=== PATIENT | male | born 1940 | race Caucasian/White ===

== ENCOUNTER 2017-12-30 15:41 | Inpatient (IN) ==
[2017-12-30] MEDS ORDERED: Sod Chloride 0.9% Inj 1,000 ML IV.CONT SCH (16:00)
--- NOTE | 2017-12-30 16:24 | XR ---
EXAM DATE: 12/30/2017 4:12 PM EDT AGE/SEX: 77 years / Male INDICATIONS: Palpitations CLINICAL DATA: This is the patient's initial encounter. Patient reports that signs and symptoms have been present for 1 day and indicates a pain score of 0/10. MEDICAL/SURGICAL HISTORY: None. None. COMPARISON: TLI, XR CHEST PA AND LAT, 01/28/2016. . FINDINGS: The cardiac silhouette is enlarged in transverse diameter. There are findings of congestive heart anthony lure with interstitial and alveolar opacity bilaterally. The lungs are hypoinflated. No pleural eff usions are identified. CONCLUSION: Cardiomegaly and findings of congestive heart failure. Electronically signed by: Gagan Crabtree MD 12/30/2017 4:23 PM EDT
[2017-12-30 16:29] LABS: Baso % (Auto) 0.5 % (0.0-2.0); Eos # (Auto) 0.1 th/mm3 (0.0-0.4); Eos % (Auto) 1.3 % (0.0-4.0); Hematocrit 46.3 % (39.0-51.0); Hemoglobin 16.1 gm/dL (13.0-17.0); Lymph # (Auto) 2.3 th/mm3 (1.0-4.8); Lymph % (Auto) 29.4 % (9.0-44.0); Mean Corpuscular HGB Conc 34.7 % (32.0-36.0); Mean Corpuscular Hemoglobin 30.6 pg (27.0-34.0); Mean Platelet Volume 8.5 fL (7.0-11.0); Mono # (Auto) 0.8 th/mm3 (0.0-0.9); Mono % (Auto) 9.7 % (0.0-8.0); Neut # (Auto) 4.6 th/mm3 (1.8-7.7); Neut % (Auto) 59.1 % (16.0-70.0); Platelet Count 226 th/mm3 (150-450); Red Blood Count 5.26 mil/mm3 (4.50-5.90); White Blood Count 7.7 th/mm3 (4.0-11.0)
--- NOTE | 2017-12-30 16:37 | CT ---
EXAM DATE: 12/30/2017 4:30 PM EDT AGE/SEX: 77 years / Male INDICATIONS: History of a stroke seen on MRI one week ago now having a severe headache weakness left arm CLINICAL DATA: This is the patient's initial encounter. Patient reports that signs and symptoms have been present for 1 day and indicates a pain score of 6/10. MEDICAL/SURGICAL HISTORY: Cerebrovascular disease. Hypertension. None. RADIATION DOSE: 36.71 CTDI (mGy) COMPARISON: POI, MR BRAIN W AND W/O CONTRAST, 12/22/2017. . TECHNIQUE: CT of the head without contrast. Using automated exposure control and adjustment of the mA and/or kV according to patient size, radiation dose was kept as low as reasonably achievable to ob tain optimal diagnostic quality images. DICOM format image data is available electronically for revi ew and comparison. FINDINGS: Cerebrum: The ventricles are normal for age. No evidence of midline shift, mass lesion, hemorrhage or acute infarction. No extraaxial fluid collections are seen. Posterior Fossa: The cerebellum and brainstem are intact. The 4th ventricle is midline. The cerebe llopontine angle is unremarkable. Extracranial: The visualized portion of the orbits is intact. Skull: The calvaria is intact. No evidence of skull fracture. The small embolic infarcts seen on the prior MRI are not visualized on this examination. CONCLUSION: 1. Unremarkable CT scan of the brain. . Electronically signed by: Geo Miller MD 12/30/2017 4:36 PM EDT
[2017-12-30 16:38] LABS: INR 1.1 Ratio; Prothrombin Time 10.9 sec (9.8-11.6)
[2017-12-30 16:58] LABS: Anion Gap 11 meq/L (5-15); Blood Urea Nitrogen 19 mg/dL (7-18); Calcium 8.3 mg/dL (8.5-10.1); Carbon Dioxide 21.2 meq/L (21.0-32.0); Chloride 110 meq/L (98-107); Glomerular Filtration Rate 46 mL/min (>89); Glucose,Random 106 mg/dL (74-106); Potassium 3.8 meq/L (3.5-5.1); Sodium 142 meq/L (136-145)
[2017-12-30 17:03] LABS: Creatine Kinase 101 U/L (39-308); Troponin I 0.03 ng/mL (0.02-0.05)
[2017-12-30] MEDS ORDERED: Aspirin 325 MG Tablet PO ONE (17:54)
--- NOTE | 2017-12-30 18:07 | ED ---
HPI General Chief Complaint: Neuro Symptoms/Deficit Stated Complaint: Evac/Ams Time Seen by Provider: 12/30/17 15:58 Source: patient, family and EMS Mode of arrival: EMS Limitations: altered mental status History of Present Illness HPI Narrative: 77-year-old male the presents to the ED for evaluation of possible CVA. Per report from the family who is at bedside as well as from the EVAC and the patient patient apparently had about a week ago an episode where he had weakness to the left hand. Basically he cannot grasp his wallet. This lasted about 1020 minutes and it went away. Patient at the time been no wanting to go to the ER and did not seek any treatment. He did follow with his doctor who ordered MRI as well as MRI of the brain and per family the MRI was done last week and does have the MRA done yesterday. His been doing fine per family and no acute distress and apparently the partner stated that he went to lunch with him today and apparently the patient drove back home with groceries and when he got home he apparently could not remember anything that had happened. Patient is unable to answer any questions on regards to what has happened for the past week and he cannot recall having an MRA or MRI recently. He does state that he has a history of atrial fibrillation and takes Eliquis. Patient himself is unable to answer some questions including who his doctor is or what day of the week it is. He cannot really tell me who the president is states is. He does appear to be altered and somewhat disoriented. He denies any numbness, tendon, weakness. He denies any chest pain or shortness of breath. He denies any trauma. Per family last time he was seen normal was around 1:00 this afternoon. Related Data Allergies Allergy/AdvReac Type Severity Reaction Status Date / Time zolpidem AdvReac Severe Psychosis Verified 12/30/17 15:50 Review of Systems ROS: all other systems reviewed are negative [facility] Medical History Medical History Hypertension (Acute) Social History Social History Substance History: No History of Abuse Second Hand Smoke Exposure: No Smoking Status: Former smoker Tobacco Type: Cigarettes How Often Do You Have a Drink Containing Alcohol: Monthly or less Recent Travel in [facility] within the Last 8 Weeks: No Recent Out of Country Travel within the Last 8 Weeks: No Immunization History Tetanus Immunization: Unsure Hx Influenza Vaccine This Season: Yes Exam Narrative Exam Narrative: GENERAL: Well-appearing SKIN: Focused skin assessment warm/dry. HEAD: Atraumatic. Normocephalic. EYES: Pupils equal and round 4 mms reactive to light and accommodation.. No scleral icterus. No injection or drainage. ENT: No nasal bleeding or discharge. Mucous membranes pink and moist. Tongue is midline. No uvula deviation. NECK: Trachea midline. No JVD. CARDIOVASCULAR: Regular rate and rhythm. No murmur appreciated. RESPIRATORY: No accessory muscle use. Clear to auscultation. Breath sounds equal bilaterally. GASTROINTESTINAL: Abdomen soft, non-tender, nondistended. Hepatic and splenic margins not palpable. MUSCULOSKELETAL: No obvious deformities. No clubbing. No cyanosis. No edema. Full range of motion of the upper and lower extremities bilaterally. 2+ pulses bilaterally. No drift or strength weakness noted on the lower or upper extremities bilaterally. Finger to nose test negative. Heel to leg test negative. Romberg test negative. Pronator test negative. NEUROLOGICAL: Awake and alert but unable to answer time questions. No obvious cranial nerve deficits. Motor grossly within normal limits. Normal speech. PSYCHIATRIC: Appropriate mood and affect; insight and judgment normal. Course Initial Documented Vital Signs Temperature 98.4 F 12/30/17 15:51 Pulse Rate 64 12/30/17 15:51 Respiratory Rate 17 12/30/17 15:51 Blood Pressure 167/84 H 12/30/17 15:51 Pulse Oximetry 100 12/30/17 15:51 Last Documented Vital Signs Temperature 98.4 F 12/30/17 15:51 Pulse Rate 64 12/30/17 15:51 Respiratory Rate 17 12/30/17 15:51 Blood Pressure 167/84 H 12/30/17 15:51 Pulse Oximetry 97 12/30/17 16:02 NIH Stroke Scale NIH Stroke Scale Level of Consciousness: 0-Alert Orientation Questions: 2-Neither task correct Responds to Commands: 0-Both tasks correct Gaze Eye Movement: 0-Horizontal movement WNL Visual So: 1-Partial hemianopia Facial Movement: 0-Normal Motor Functions Arm LEFT: 0-No drift Motor Functions Arm RIGHT: 0-No drift Motor Functions Leg LEFT: 0-No drift Motor Functions Leg RIGHT: 0-No drift Limb Ataxia: 0-No ataxia Sensory Loss: 0-No sensory loss Best Language: 0-Normal Articulation: 0-Normal Extinction or Inattention Sensory: 0-Absent Total: 3 Medical Decision Making MDM Narrative Medical decision making narrative: 77-year-old male the presents to the ED for evaluation of possible stroke and altered mental status. Patient was properly examined by me. Case was immediately discussed with my attending. Patient has no neurological deficits and NIH score is 3 and mainly appears to be altered. He does take Eliquis. Unfortunately he will not be a candidate for TPA. He did had an MRI recently which was reviewed by me did show what appears to be acute embolic infarcts and this was done on December 22. Patient had MRIs done as well which were done yesterday and did show some artherosclerotic disease but minimal per the MRAs. I was able to print a copy of this results and put him on the patient's chart. My attending recommends CVA workup but no stroke alert. Dr. Sanders evaluated the patient himself and agrees with this plan as patient unfortunately would not be a candidate for TPA. Initial CT did not show any sign of acute disease or bleeding. Case was discussed immediately with my attending again who recommends a speak with neurology to see what the recommend. Spoke with Dr. Lanza who recommends repeat the MRI, aspirin and assess whether the patient has been compliant with the Eliquis as if he has not the patient might have to be anticoagulated with a different medication. All of those results worse discussed with the patient and family. They agree with plan. Case discussed with my attending Dr. Sanders who agrees with admission to the medical service. Case discussed with Dr. Santo who agrees with admission to his service. Medical Screen Exam Complete: Yes Emergency Medical Condition: Yes Differential Diagnosis Differential Diagnosis: CVA versus brain bleed versus ACS versus UTI versus altered mental status Medical Records Medical records reviewed: Yes I reviewed the patient's medical records. Lab Data Lab results reviewed: Yes I reviewed the patient's lab results. Lab results narrative: troponin and CKMB negative Result diagrams: 12/30/17 16:00 12/30/17 16:00 Lab Results 12/30/17 12/30/17 12/30/17 Range/Units 16:00 16:00 16:00 WBC 7.7 (4.0-11.0) th/mm3 RBC 5.26 (4.50-5.90) mil/mm3 Hgb 16.1 (13.0-17.0) gm/dL Hct 46.3 (39.0-51.0) % MCV 88.0 (80.0-100.0) fL MCH 30.6 (27.0-34.0) pg MCHC 34.7 (32.0-36.0) % RDW 15.0 (11.6-17.2) % Plt Count 226 (150-450) th/mm3 MPV 8.5 (7.0-11.0) fL Neut % (Auto) 59.1 (16.0-70.0) % Lymph % (Auto) 29.4 (9.0-44.0) % [place] % (Auto) 9.7 H (0.0-8.0) % Eos % (Auto) 1.3 (0.0-4.0) % Baso % (Auto) 0.5 (0.0-2.0) % Neut # (Auto) 4.6 (1.8-7.7) th/mm3 Lymph # (Auto) 2.3 (1.0-4.8) th/mm3 [place] # (Auto) 0.8 (0.0-0.9) th/mm3 Eos # (Auto) 0.1 (0.0-0.4) th/mm3 Baso # (Auto) 0.0 (0.0-0.2) th/mm3 WBC Differential . Differential Comment Auto diff final PT 10.9 (9.8-11.6) sec INR 1.1 Ratio APTT 28.0 (24.3-30.1) sec Sodium 142 (136-145) meq/L Potassium 3.8 (3.5-5.1) meq/L Chloride 110 H (98-107) meq/L Carbon Dioxide 21.2 (21.0-32.0) meq/L Anion Gap 11 (5-15) meq/L BUN 19 H (7-18) mg/dL Creatinine 1.48 H (0.60-1.30) mg/dL Estimated GFR 46 L (>89) mL/min Random Glucose 106 (74-106) mg/dL Calcium 8.3 L (8.5-10.1) mg/dL Total Creatine Kinase 101 (39-308) U/L CK-MB (CK-2) 2.0 (0.5-3.6) ng/mL Troponin I 0.03 (0.02-0.05) ng/mL Imaging Data Attestation: I personally reviewed and interpreted this imaging study as follows : Radiologist's impression: Chest X-Ray 12/30/17 15:58 CONCLUSION: Cardiomegaly and findings of congestive heart failure. Head CT 12/30/17 15:58 CONCLUSION: 1. Unremarkable CT scan of the brain. . ECG Data Attestation: I personally reviewed and interpreted this ECG as follows: Interpretation: EKG shows sinus rhythm with no sign of acute ischemia. No sign of ST elevation. IA intervals 174 milliseconds, ventricular rate of 67. Read by me and attending. Discharge Plan Discharge Disposition Patient Disposition: 30 Still Patient Discharge Details Diagnosis: Acute CVA (cerebrovascular accident), Altered mental status Physicians Team ED Provider: Rolly Sanders ED Midlevel Provider: Singh Garcia Primary Care Provider: Chen Hendricks Attending Provider: Martin Santo Other Providers: Gama Acuna Status ED Status: Admitted Patient
[2017-12-30 18:46] LABS: Bilirubin,Urine Negative (Negative); Clarity,Urine Clear (Clear); Color,Urine Yellow (Yellw/Straw); Glucose,Urine (UA) Negative (Negative); Hyaline Casts,Urine 5 /lpf (0-3); Leukocyte Esterase,Urine Negative (Negative); Mucus,Urine Few /lpf (Occasional); Nitrite,Urine Negative (Negative); Squamous Epithelial Cell,Urine <1 /hpf (0-5)
[2017-12-30] MEDS ORDERED: Dextrose 50% in Water 50 ML Vial IV.PUSH PRN (19:26)
[2017-12-30] MEDS ORDERED: Heparin - SQ 10,000 UNITS/ML Vial SQ SCH (21:00)
--- NOTE | 2017-12-30 21:04 | US ---
EXAM DATE: 12/30/2017 8:50 PM EDT AGE/SEX: 77 years / Male INDICATIONS: Confusion. CLINICAL DATA: This is the patient's initial encounter. Patient reports that signs and symptoms have been present for 1 day and indicates a pain score of 0/10. MEDICAL/SURGICAL HISTORY: Hypertension. None. COMPARISON: No prior exams available for comparison. VELOCITY PARAMETERS: ICA/CCA Ratio: Right 0.9 , Left 0.8 ICA: Right 57.4 cm/sec, Left 61.3 cm/sec CCA: Right 66.8 cm/sec, Left 79.3 cm/sec ECA: Right 79.9 cm/sec, Left 44.5 cm/sec Vertebral: Right 22.1 cm/sec antegrade, Left 60.4 cm/sec antegrade FINDINGS: Right Carotid: There is mild plaque at the right carotid bulb region without significant stenosis. T he waveforms are within normal limits. Left Carotid: No significant plaque is visualized. The waveforms are within normal limits. Other: None. CONCLUSION: Mild plaque at the right carotid bulb region. A significant stenosis is not seen on eithe r side. Electronically signed by: Shlomo Mcdonald MD 12/30/2017 9:03 PM EDT
--- NOTE | 2017-12-30 21:21 | P.HPIM ---
History of Present Illness Primary Care Physician: Chen Hendricks DO History of Present Illness: 77 y/o male with a history of HTN, and afib presented to the ED with confusion and left hand weakness. Patient only remembers some of the events today but states he was at grocery store and he became disoriented but able to drive home. When he got home he called for help. He does remember 2 days ago he had left hand weakness that has somewhat resolved. Patient denies any chest pain, sob, fever, chills, headaches or dizziness. He is currently on Eliquis at home and states he has been compliant with it. Inpatient Certification: I certify that the inpatient services were ordered in accordance with Medicare regulations governing the order. This includes certification that hospital inpatient services are reasonable and necessary and in the case of services not specified as inpatient-only under 42 CFR 419.22(n), that they are appropriately provided as inpatient services in accordance to with the 2-midnight benchmark under 43 CFR 412.3(e) Estimated Total Length of Stay (Days): 3 Plans for Post Hospital Care: Not yet determined Review of Systems All other systems reviewed negative except as stated in HPI PMFSH - History History Provided By: Family Member, Project Manager Industrial / EMT - Medical History Medical History: Medical History (Last Reviewed 12/30/17 @ 18:02 by JONATHAN Cevallos) Hypertension - Surgical History Surgical History: Surgical History (Last Updated 12/30/17 @ 21:08 by BRAN Chauhan) History of hip surgery History of knee surgery - Family History Family History: Family History (Last Updated 12/30/17 @ 21:09 by BRAN Chauhan) Mother CVA (cerebral vascular accident) Father CVA (cerebral vascular accident) - Tobacco History Second Hand Smoke Exposure: No Smoking Status: Former smoker Tobacco Type: Cigarettes - Alcohol History How Often Do You Have a Drink Containing Alcohol: Monthly or less - Substance Use History Substance History: No History of Abuse - Travel History Recent Travel in the [place] Within the Last 8 Weeks: No Recent Travel Out of the Country Within the Last 8 Weeks: No - Immunization History Tetanus Immunization: Unsure Hx Influenza Vaccine This Season: Yes Medications and Allergies Active Medications: Active Medications Aspirin (Aspirin Chew) 81 mg PO DAILY JAIME Dextrose (D50w Vial) 50 ml IV.PUSH UNSCH PRN PRN Reason: PER HYPOGLYCEMIA PROTOCOL Glucagon (Glucagon Inj) 1 mg OTHER UNSCH PRN PRN Reason: for Hypoglycemia Protocol Heparin Sodium (Porcine) (Heparin Inj) 5,000 units SQ Q12H JAIME Sodium Chloride (Ns Inj) 1,000 mls @ 70 mls/hr IV.CONT .[id number] JAIME Stop: 12/31/17 06:17 Last Admin: 12/30/17 16:11 Dose: 70 mls/hr Insulin Aspart (Novolog Insulin Correctional Sugar Inj) 0 unit SQ ACHS JAIME; Protocol Sodium Chloride (Ns Flush) 2 ml IV.FLUSH BID JAIME Sodium Chloride (Ns Flush) 2 ml IV.FLUSH PRN PRN PRN Reason: FLUSH AFTER USING IV ACCESS Allergies Allergy/AdvReac Type Severity Reaction Status Date / Time zolpidem AdvReac Severe Psychosis Verified 12/30/17 15:50 Home Medications Medication Instructions Recorded Confirmed Type Unable to Obtain Home Meds 12/30/17 12/30/17 History Exam Vital signs: Vital Signs 12/30/17 15:51 12/30/17 16:02 12/30/17 18:07 Temperature 98.4 F Pulse Rate 64 65 Respiratory Rate 17 19 Blood Pressure 167/84 H 183/94 H Pulse Oximetry 100 97 100 12/30/17 18:12 Temperature Pulse Rate Respiratory Rate Blood Pressure Pulse Oximetry 98 Intake & Output 12/30/17 12/30/17 12/31/17 06:59 18:59 06:59 Weight 79.4 kg Narrative: GENERAL: This is a well-nourished, well-developed patient, in no apparent distress. CARDIOVASCULAR: Regular rate and rhythm without murmurs, gallops, or rubs. RESPIRATORY: Clear to auscultation. Breath sounds equal bilaterally. No wheezes , rales, or rhonchi. GASTROINTESTINAL: Abdomen soft, non-tender, nondistended. Normal active bowel sounds MUSCULOSKELETAL: Extremities without clubbing, cyanosis, or edema. NEURO: Alert & partially Oriented x2-3 to person, place, and situation. Moves all ext x4, left hand slightly weaker. Results - Labs CBC & Chem 7: 12/30/17 16:00 12/30/17 16:00 Labs: Short CBC 12/30/17 Range/Units 16:00 WBC 7.7 (4.0-11.0) th/mm3 Hgb 16.1 (13.0-17.0) gm/dL Hct 46.3 (39.0-51.0) % Plt Count 226 (150-450) th/mm3 BMP 12/30/17 16:00 Sodium 142 Potassium 3.8 Chloride 110 H Carbon Dioxide 21.2 BUN 19 H Creatinine 1.48 H Calcium 8.3 L Cardiac Enzymes 12/30/17 Range/Units 16:00 Total Creatine Kinase 101 (39-308) U/L CK-MB (CK-2) 2.0 (0.5-3.6) ng/mL Troponin I 0.03 (0.02-0.05) ng/mL Urine 12/30/17 Range/Units 18:05 Urine Color Yellow (Yellw/Straw) Urine Clarity Clear (Clear) Urine pH 5.0 (5.0-8.5) Ur Specific [place] 1.020 (1.002-1.035) Urine Protein Negative (Neg-Trace) mg/dL Urine Glucose (UA) Negative (Negative) mg/dL - Imaging Impressions Chest X-Ray 12/30/17 15:58 CONCLUSION: Cardiomegaly and findings of congestive heart failure. Head CT 12/30/17 15:58 CONCLUSION: 1. Unremarkable CT scan of the brain. . Caprini VTE Risk Assessment Caprini VTE Risk Assessment: Moderate/High Risk (score >= 2) Caprini Risk Assessment Model: Point Value = 1 Point Value = 2 Point Value = 3 Point Value = 5 Age 41-60 Minor surgery BMI > 25 kg/m2 Swollen legs Varicose veins or History of unexplained or recurrent spontaneous Oral contraceptives or hormone replacement Sepsis (< 1 month) Serious lung disease, including pneumonia (< 1 month) Abnormal pulmonary function Acute myocardial infarction Congestive heart failure (< 1 month) History of inflammatory bowel disease Medical patient at bed rest Age 61-74 Arthroscopic surgery Major open surgery (> 45 min) Laparoscopic surgery (> 45 min) Malignancy Confined to bed (> 72 hours) Immobilizing plaster cast Central venous access Age >= 75 History of VTE Family history of VTE Factor V Leiden Prothrombin [id number] Lupus anticoagulant Anticardiolipin antibodies Elevated serum homocysteine Heparin-induced thrombocytopenia Other congenital or acquired thrombophilia Stroke (< 1 month) Elective arthroplasty Hip, pelvis, or leg fracture Acute spinal cord injury (< 1 month) Prophylaxis Regimen: Total Risk Factor Score Risk Level Prophylaxis Regimen 0-1 Low Early ambulation 2 Moderate Order ONE of the following: *Sequential Compression Device (SCD) *Heparin 5000 units SQ BID 3-4 Higher Order ONE of the following medications: *Heparin 5000 units SQ TID *Enoxaparin/Lovenox 40 mg SQ daily (WT < 150 kg, CrCl > 30 mL/min) *Enoxaparin/Lovenox 30 mg SQ daily (WT < 150 kg, CrCl > 10-29 mL/min) *Enoxaparin/Lovenox 30 mg SQ BID (WT < 150 kg, CrCl > 30 mL/min) AND/OR *Sequential Compression Device (SCD) 5 or more Highest Order ONE of the following medications: *Heparin 5000 units SQ TID (Preferred with Epidurals) *Enoxaparin/Lovenox 40 mg SQ daily (WT < 150 kg, CrCl > 30 mL/min) *Enoxaparin/Lovenox 30 mg SQ daily (WT < 150 kg, CrCl > 10-29 mL/min) *Enoxaparin/Lovenox 30 mg SQ BID (WT < 150 kg, CrCl > 30 mL/min) AND *Sequential Compression Device (SCD) Assessment and Plan - Plan CVA Outpatient MRI reviewed and shows acute embolic infarcts Head CT reviewed and unremarkable -Consult neurology for evaluation -Repeat MRI recommended my neuro, reviewed and shows Multiple small focal areas of acute infarction in the right frontal and parietal lobes, right caudate, right posterior lateral corpus callosum, and right cerebellar hemispheres and all were present prior, there is also a new linear signal seen in the posterior right parietal lobe thought to be cortical sulci consistent with subarachnoid hemorrhage. -Consult neurosurgery for evaluation as well -Neuro checks -2d echo and carotid US ordered -Pt/OT/ST -lipid profile/a1c ordered -ASA daily FREDA, creatine 1.4,Unknown baseline -IVF -Trend creatine -avoid nephrotoxins HTN, chronic -Keep BP between 140s-160s -Clonidine PRN -Monitor vitals Afib, chronic -patient is on eliquis and states compliant, will need a new anticoagulation regimen on cleared by neurosurgery -monitor telemetry/Holter monitor DVT prophylaxis: SCDs, hold chemical due to hemorrhage Discussed Condition With: patient and RN
[2017-12-30] MEDS ORDERED: Gadobutrol PF 7.5 MMOL/7.5 ML Vial (for RAD) IV.SIG ONE (21:24)
--- NOTE | 2017-12-30 21:29 | MR ---
EXAM DATE: 12/30/2017 9:17 PM EDT AGE/SEX: 77 years / Male INDICATIONS: CVA. Memory loss. CLINICAL DATA: This is the patient's subsequent encounter. Patient reports that signs and symptoms h ave been present for 1 day and indicates a pain score of 0/10. MEDICAL/SURGICAL HISTORY: Cerebrovascular disease. . Hip and knee replacement. COMPARISON: POI, MR BRAIN W AND W/O CONTRAST, 12/22/2017. . TECHNIQUE: Multiplanar, multisequence examination of the brain was performed without and with 7.5 ml Gadavist (gadobutrol) contrast as a single exam dose. FINDINGS: Cerebrum: The ventricles are normal for age. There continue to be small focal areas of abnormal sig nal seen on the FLAIR and diffusion-weighted images in the right cerebral hemisphere in the right fro ntal lobe, right parietal lobe, right caudate, right posterior lateral corpus callosum, and in the me dial right cerebellar hemisphere. There is some increased signal seen in the posterior right parietal lobe which appears to be the sulci suggesting the presence of mild subarachnoid hemorrhage. This rosita ears new. The pituitary gland and suprasellar cistern are normal in configuration. White Matter: There are a few scattered areas of increased signal within the cerebral white matter. Posterior Fossa: The cerebellum and brainstem are intact. The 4th ventricle is midline. The cerebel lopontine angle is unremarkable. The cerebellar tonsils are normal in position. Diffusion Imaging: There continue to be small focal areas of abnormal signal seen on the FLAIR and d iffusion-weighted images in the right cerebral hemisphere in the right frontal lobe, right parietal l obe, right caudate, right posterior lateral corpus callosum, and in the medial right cerebellar hemis phere. Extracranial: The visualized portions of the orbits and paranasal sinuses are unremarkable. Post Contrast: No abnormal areas of parenchymal or dural enhancement. No evidence of blood-brain ba rrier breakdown. CONCLUSION: 1. Multiple small focal areas of acute infarction in the right frontal and parietal lobes, right cau date, right posterior lateral corpus callosum, and right cerebellar hemispheres. These were all prese nt previously. 2. New linear signal seen in the posterior right parietal lobe thought to be cortical sulci consiste nt with subarachnoid hemorrhage. This appears new. 3. Scattered areas of suspected small vessel ischemic change in the white matter. Electronically signed by: Shlomo Mcdonald MD 12/30/2017 9:28 PM EDT
[2017-12-30] MEDS: Insulin NovoLOG Aspart Correctional Sugar Inj SQ SCH (22:00)
[2017-12-31] MEDS ORDERED: Melatonin 5 MG Tablet PO ONE (01:40)
[2017-12-31 08:11] LABS: Chol/HDL Ratio 4.36 Ratio; HDL Cholesterol 34.8 mg/dL (40.0-60.0)
[2017-12-31] MEDS: Insulin NovoLOG Aspart Correctional Sugar Inj SQ SCH ×4 (08:43→20:44)
--- NOTE | 2017-12-31 08:55 | P.CONNS ---
History of Present Illness Service: neurosurgery Consult date: 12/31/17 Requesting Physician: Bronwyn Yu Reason for Consult: subarachnoid hemorrhage Primary Care Provider: Chen Hendricks DO Family Provider: Chen Hendricks DO Chief Complaint: headaches History of Present Illness: 77 y/o male with a history of HTN, and afib presented to the ED with confusion and left hand weakness. Patient only remembers some of the events today but states he was at grocery store and he became disoriented but able to drive home. When he got home he called for help. He does remember 2 days ago he had left hand weakness that has somewhat resolved. Patient denies any chest pain, sob, fever, chills, headaches or dizziness. 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 - Medical History Medical History: Medical History (Last Reviewed 12/31/17 @ 14:11 by Freda Saab) Hypertension - Surgical History Surgical History: Surgical History (Last Reviewed 12/31/17 @ 14:11 by Freda Saab) History of hip surgery History of knee surgery - Family History Family History: Family History (Last Updated 12/30/17 @ 21:09 by BRAN Chauhan) Mother CVA (cerebral vascular accident) Father CVA (cerebral vascular accident) - Tobacco History Second Hand Smoke Exposure: No Smoking Status: Former smoker Tobacco Type: Cigarettes - Alcohol History How Often Do You Have a Drink Containing Alcohol: Monthly or less - Substance Use History Substance History: No History of Abuse - Travel History Recent Travel in the [place] Within the Last 8 Weeks: No Recent Travel Out of the Country Within the Last 8 Weeks: No - Immunization History Tetanus Immunization: Unsure Hx Influenza Vaccine This Season: Yes Medications and Allergies Active Medications: Active Medications Aspirin (Aspirin Chew) 81 mg PO DAILY [facility] Last Admin: 12/31/17 08:43 Dose: 81 mg Clonidine HCl (Catapres) 0.1 mg PO Q6H PRN PRN Reason: SBP> OR = 180, DBP> OR = 100 Dextrose (D50w Vial) 50 ml IV.PUSH UNSCH PRN PRN Reason: PER HYPOGLYCEMIA PROTOCOL Glucagon (Glucagon Inj) 1 mg OTHER UNSCH PRN PRN Reason: for Hypoglycemia Protocol Insulin Aspart (Novolog Insulin Correctional Sugar Inj) 0 unit SQ ACHS [facility]; Protocol Last Admin: 12/31/17 08:43 Dose: Not Given Sodium Chloride (Ns Flush) 2 ml IV.FLUSH BID JAIME Last Admin: 12/31/17 08:44 Dose: 2 ml Sodium Chloride (Ns Flush) 2 ml IV.FLUSH PRN PRN PRN Reason: FLUSH AFTER USING IV ACCESS Allergies Allergy/AdvReac Type Severity Reaction Status Date / Time zolpidem AdvReac Severe Psychosis Verified 12/30/17 15:50 Home Medications Medication Instructions Recorded Confirmed Type Unable to Obtain Home Meds 12/30/17 12/30/17 History Exam Vital signs: Vital Signs 12/30/17 15:51 12/30/17 16:02 12/30/17 18:07 Temperature 98.4 F Pulse Rate 64 65 Respiratory Rate 17 19 Blood Pressure 167/84 H 183/94 H Pulse Oximetry 100 97 100 12/30/17 18:12 12/30/17 21:40 12/30/17 23:29 Temperature Pulse Rate 82 Respiratory Rate 16 Blood Pressure 172/92 H Pulse Oximetry 98 97 12/31/17 00:45 12/31/17 01:31 12/31/17 04:00 Temperature 97.3 F L 97.6 F Pulse Rate 70 59 L 61 Respiratory Rate 16 18 18 Blood Pressure 154/74 H 162/80 H 156/81 H Pulse Oximetry 98 97 96 Intake & Output 12/30/17 12/31/17 12/31/17 18:59 06:59 18:59 Intake Total 1000 / 1000 Output Total Balance 999 / 999 Weight 79.4 kg 79.4 kg Intake: IV 1000 / 1000 NS Inj 1,000 ML @ 70 mls/hr IV. 1000 / 1000 CONT .[id number] [facility] Rx#:[id number] Output: Stool Other: # Voids 1 Date of Last Bowel Movement 12/31/17 # Bowel Movements 1 Results - Laboratory Findings CBC and BMP: 12/30/17 16:00 12/30/17 16:00 Abnormal lab findings: Abnormal Labs 12/30/17 12/30/17 12/30/17 16:00 16:00 18:05 Moody % (Auto) 9.7 H Chloride 110 H BUN 19 H Creatinine 1.48 H Estimated GFR 46 L Calcium 8.3 L HDL Cholesterol Urine Urobilinogen 2.0 H Urine Mucus Few H 12/31/17 06:20 Moody % (Auto) Chloride BUN Creatinine Estimated GFR Calcium HDL Cholesterol 34.8 L Urine Urobilinogen Urine Mucus Assessment and Plan - Plan I reviewed the radiological studies including Carotid Doppler Study 12/30/17 00:00 CONCLUSION: Mild plaque at the right carotid bulb region. A significant stenosis is not seen on either side. Chest X-Ray 12/30/17 15:58 CONCLUSION: Cardiomegaly and findings of congestive heart failure. Head CT 12/30/17 15:58 CONCLUSION: 1. Unremarkable CT scan of the brain. Head MRI 12/30/17 18:41 CONCLUSION: 1. Multiple small focal areas of acute infarction in the right frontal and parietal lobes, right caudate, right posterior lateral corpus callosum, and right cerebellar hemispheres. These were all present previously. 2. New linear signal seen in the posterior right parietal lobe thought to be cortical sulci consistent with subarachnoid hemorrhage. This appears new. 3. Scattered areas of suspected small vessel ischemic change in the white matter. Neuro: neuro checks in a serial fashion. Recommend nonoperative treatment. Follow up CT in 24 hrs is recommended. Consult neurology for ischemic cerebrovascular accident workup Pulmonary: aggressive pulmonary toilette, nasotracheal suction, and breathing treatments with nebulizers. Daily PT and OT Renal: Continue to monitor closely urine output, BUN and creatinine Endocrine: Continue to Monitor serial Acu checks and SSI as needed in detail ID continue to monitor for signs of infection Continue Protonix for stress ulcer prophylaxis Continue Isaiah hose and SCD's for DVT prophylaxis Caprini VTE Risk Assessment Caprini VTE Risk Assessment: Moderate/High Risk (score >= 2) Caprini Risk Assessment Model: Point Value = 1 Point Value = 2 Point Value = 3 Point Value = 5 Age 41-60 Minor surgery BMI > 25 kg/m2 Swollen legs Varicose veins or History of unexplained or recurrent spontaneous Oral contraceptives or hormone replacement Sepsis (< 1 month) Serious lung disease, including pneumonia (< 1 month) Abnormal pulmonary function Acute myocardial infarction Congestive heart failure (< 1 month) History of inflammatory bowel disease Medical patient at bed rest Age 61-74 Arthroscopic surgery Major open surgery (> 45 min) Laparoscopic surgery (> 45 min) Malignancy Confined to bed (> 72 hours) Immobilizing plaster cast Central venous access Age >= 75 History of VTE Family history of VTE Factor V Leiden Prothrombin [id number] Lupus anticoagulant Anticardiolipin antibodies Elevated serum homocysteine Heparin-induced thrombocytopenia Other congenital or acquired thrombophilia Stroke (< 1 month) Elective arthroplasty Hip, pelvis, or leg fracture Acute spinal cord injury (< 1 month) Prophylaxis Regimen: Total Risk Factor Score Risk Level Prophylaxis Regimen 0-1 Low Early ambulation 2 Moderate Order ONE of the following: *Sequential Compression Device (SCD) *Heparin 5000 units SQ BID 3-4 Higher Order ONE of the following medications: *Heparin 5000 units SQ TID *Enoxaparin/Lovenox 40 mg SQ daily (WT < 150 kg, CrCl > 30 mL/min) *Enoxaparin/Lovenox 30 mg SQ daily (WT < 150 kg, CrCl > 10-29 mL/min) *Enoxaparin/Lovenox 30 mg SQ BID (WT < 150 kg, CrCl > 30 mL/min) AND/OR *Sequential Compression Device (SCD) 5 or more Highest Order ONE of the following medications: *Heparin 5000 units SQ TID (Preferred with Epidurals) *Enoxaparin/Lovenox 40 mg SQ daily (WT < 150 kg, CrCl > 30 mL/min) *Enoxaparin/Lovenox 30 mg SQ daily (WT < 150 kg, CrCl > 10-29 mL/min) *Enoxaparin/Lovenox 30 mg SQ BID (WT < 150 kg, CrCl > 30 mL/min) AND *Sequential Compression Device (SCD) Further recommendations will be provided depending on the patient's clinical evaluation and follow up studies.
--- NOTE | 2017-12-31 09:54 | ECG ---
Date Performed: 12/30/2017 Time Performed: 16:05:13 PTAGE: 77 years EKG: Sinus rhythm NORMAL ECG Since the PREVIOUS TRACING , no significant change noted PREVIOUS TRACING 12-02-2014 23.16.28 DOCTOR: Gagan Keita Interpretating Date/Time 12/31/2017 09:51:19
--- NOTE | 2017-12-31 13:41 | ECHRPT ---
Indication: CVA/TIA CONCLUSIONS The left ventricular systolic function is normal with an estimated ejection fraction in the range of 60-65%. There is mild tricuspid valve regurgitation. Trivial pulmonary valve regurgitation. BP: / HR: Rhythm: Sinus MEASUREMENTS (Male / Female) Normal Values Technical Quality:Fair 2D ECHO LV Diastolic Diameter PLAX 4.4 cm 4.2 - 5.9 / 3.9 - 5.3 cm LV Systolic Diameter PLAX 3.2 cm IVS Diastolic Thickness 1.1 cm 0.6 - 1.0 / 0.6 - 0.9 cm LVPW Diastolic Thickness 1.1 cm 0.6 - 1.0 / 0.6 - 0.9 cm LV Relative Wall Thickness 0.5 RV Internal Dim ED PLAX 3.1 cm LVOT Diameter 2.0 cm LA Systolic Diameter LX 3.6 cm 3.0 - 4.0 / 2.7 - 3.8 cm M-MODE AV Cusp Separation MM 1.6 cm DOPPLER AV Peak Velocity 132.0 cm/s AV Peak Gradient 7.0 mmHg LVOT Peak Velocity 126.0 cm/s LVOT Peak Gradient 6.4 mmHg AV Area Cont Eq pk 3.0 cm Mitral E Point Velocity 78.0 cm/s Mitral A Point Velocity 70.6 cm/s Mitral E to A Ratio 1.1 LV E' Lateral Velocity 9.0 cm/s Mitral E to LV E' Lateral Ratio 8.7 LV E' Septal Velocity 6.8 cm/s Mitral E to LV E' Septal Ratio 11.4 TR Peak Velocity 288.0 cm/s TR Peak Gradient 33.2 mmHg Right Atrial Pressure 10.0 mmHg Pulmonary Artery Systolic Pressu 43.2 mmHg Right Ventricular Systolic Press 43.2 mmHg PV Peak Velocity 95.0 cm/s PV Peak Gradient 3.6 mmHg FINDINGS LEFT VENTRICLE Normal left ventricular size. Wall thickness is measured at the upper limits of normal. The left ventricular systolic function is normal with an estimated ejection fraction in the range of 60-65%. RIGHT VENTRICLE Normal right ventricular size and systolic function. LEFT ATRIUM The left atrial size is normal. RIGHT ATRIUM The right atrial size is normal. ATRIAL SEPTUM The interatrial septum not well visualized. AORTA The aortic root and proximal ascending aorta are normal in size on limited imaging. MITRAL VALVE Structurally normal mitral valve. No mitral valve stenosis or regurgitation. AORTIC VALVE Trileaflet aortic valve. No aortic valve stenosis or regurgitation. TRICUSPID VALVE There is mild tricuspid valve regurgitation. The estimated pulmonary arterial pressure is 43.2 mmHg. PULMONARY VALVE Trivial pulmonary valve regurgitation. VESSELS The inferior vena cava was not well visualized. PERICARDIUM No pericardial effusion. Troy Perez DO (Electronically Signed) Final Date:31 December 2017 13:40
--- NOTE | 2017-12-31 15:19 | P.PNIM ---
Subjective Interval history: Patient reports he is feeling great today. He denies any neurological symptoms. He states the left hand vice president of development normalized. No numbness or tingling. Headache resolved. Physical Exam Vital signs: Vital Signs 12/30/17 15:51 12/30/17 16:02 12/30/17 18:07 Temperature 98.4 F Pulse Rate 64 65 Respiratory Rate 17 19 Blood Pressure 167/84 H 183/94 H Pulse Oximetry 100 97 100 12/30/17 18:12 12/30/17 21:40 12/30/17 23:29 Temperature Pulse Rate 82 Respiratory Rate 16 Blood Pressure 172/92 H Pulse Oximetry 98 97 12/31/17 00:45 12/31/17 01:31 12/31/17 04:00 Temperature 97.3 F L 97.6 F Pulse Rate 70 59 L 61 Respiratory Rate 16 18 18 Blood Pressure 154/74 H 162/80 H 156/81 H Pulse Oximetry 98 97 96 12/31/17 08:00 12/31/17 09:05 12/31/17 12:00 Temperature 97.9 F 98.0 F Pulse Rate 64 64 56 L Respiratory Rate 17 17 Blood Pressure 148/82 H 163/87 H Pulse Oximetry 96 97 Intake & Output 12/30/17 12/31/17 12/31/17 18:59 06:59 18:59 Intake Total 1000 / 1000 Output Total Balance 999 / 999 Weight 79.4 kg 79.4 kg Intake: IV 1000 / 1000 NS Inj 1,000 ML @ 70 mls/hr IV. 1000 / 1000 CONT .[id number] [facility] Rx#:[id number] Output: Stool Other: # Voids 1 Date of Last Bowel Movement 12/31/17 # Bowel Movements 1 Narrative: GENERAL: This is a well-nourished, well-developed patient, in no apparent distress. CARDIOVASCULAR: Normal rate and regular rhythm without murmurs, gallops, or rubs. RESPIRATORY: Good respiratory efforts. Breath sounds equal and clear to auscultation bilaterally. GASTROINTESTINAL: Abdomen soft, non-tender, non-distended. Normal active bowel sounds MUSCULOSKELETAL: Extremities without cyanosis, or edema. NEURO: Alert & Oriented x4 to person, place, time, situation. Moves all ext x4 PSYCH: Appropriate mood and affect. Results - Labs CBC & Chem 7: 12/30/17 16:00 12/30/17 16:00 Laboratory Results - last 24 hr 12/30/17 12/30/17 12/30/17 16:00 16:00 16:00 WBC 7.7 RBC 5.26 Hgb 16.1 Hct 46.3 MCV 88.0 MCH 30.6 MCHC 34.7 RDW 15.0 Plt Count 226 MPV 8.5 Neut % (Auto) 59.1 Lymph % (Auto) 29.4 Daggett % (Auto) 9.7 H Eos % (Auto) 1.3 Baso % (Auto) 0.5 Neut # (Auto) 4.6 Lymph # (Auto) 2.3 Daggett # (Auto) 0.8 Eos # (Auto) 0.1 Baso # (Auto) 0.0 WBC Differential . Differential Comment Auto diff final PT 10.9 INR 1.1 APTT 28.0 Sodium 142 Potassium 3.8 Chloride 110 H Carbon Dioxide 21.2 Anion Gap 11 BUN 19 H Creatinine 1.48 H Estimated GFR 46 L Random Glucose 106 Calcium 8.3 L Total Creatine Kinase 101 CK-MB (CK-2) 2.0 Troponin I 0.03 Triglycerides Cholesterol LDL Cholesterol, Calc HDL Cholesterol Cholesterol/HDL Ratio Urine Color Urine Clarity Urine pH Ur Specific [place]ray Urine Protein Urine Glucose (UA) Urine Ketones Urine Occult Blood Urine Nitrate Urine Bilirubin Urine Urobilinogen Ur Leukocyte Esterase Urine RBC Urine WBC Ur Squamous Epith Cells Hyaline Casts Urine Mucus Micro UA Comment Ur Microscopic Review Urine Culture Comments 12/30/17 12/31/17 18:05 06:20 WBC RBC Hgb Hct MCV MCH MCHC RDW Plt Count MPV Neut % (Auto) Lymph % (Auto) Daggett % (Auto) Eos % (Auto) Baso % (Auto) Neut # (Auto) Lymph # (Auto) Daggett # (Auto) Eos # (Auto) Baso # (Auto) WBC Differential Differential Comment PT INR APTT Sodium Potassium Chloride Carbon Dioxide Anion Gap BUN Creatinine Estimated GFR Random Glucose Calcium Total Creatine Kinase CK-MB (CK-2) Troponin I Triglycerides 109 Cholesterol 152 LDL Cholesterol, Calc 95 HDL Cholesterol 34.8 L Cholesterol/HDL Ratio 4.36 Urine Color Yellow Urine Clarity Clear Urine pH 5.0 Ur Specific [place]ray 1.020 Urine Protein Negative Urine Glucose (UA) Negative Urine Ketones Negative Urine Occult Blood Negative Urine Nitrate Negative Urine Bilirubin Negative Urine Urobilinogen 2.0 H Ur Leukocyte Esterase Negative Urine RBC Less than 1 Urine WBC Less than 1 Ur Squamous Epith Cells <1 Hyaline Casts 5 Urine Mucus Few H Micro UA Comment Culture not ind Ur Microscopic Review Not Reportable Urine Culture Comments Culture not ind - Imaging Impressions Carotid Doppler Study 12/30/17 00:00 CONCLUSION: Mild plaque at the right carotid bulb region. A significant stenosis is not seen on either side. Chest X-Ray 12/30/17 15:58 CONCLUSION: Cardiomegaly and findings of congestive heart failure. Head CT 12/30/17 15:58 CONCLUSION: 1. Unremarkable CT scan of the brain. . Head MRI 12/30/17 18:41 CONCLUSION: 1. Multiple small focal areas of acute infarction in the right frontal and parietal lobes, right caudate, right posterior lateral corpus callosum, and right cerebellar hemispheres. These were all present previously. 2. New linear signal seen in the posterior right parietal lobe thought to be cortical sulci consistent with subarachnoid hemorrhage. This appears new. 3. Scattered areas of suspected small vessel ischemic change in the white matter. Assessment and Plan - Assessment (1) Acute CVA (cerebrovascular accident) Code(s): I63.9 - Cerebral infarction, unspecified Status: Acute - Plan 77-year-old male with: CVA MRI revealed: 1. Multiple small focal areas of acute infarction in the right frontal and parietal lobes, right caudate, right posterior lateral corpus callosum, and right cerebellar hemispheres. These were all present previously. 2. New linear signal seen in the posterior right parietal lobe thought to be cortical sulci consistent with subarachnoid hemorrhage. This appears new. 3. Scattered areas of suspected small vessel ischemic change in the white matter. Neurology and neurosurgery consulted. -Nonsurgical management per neurosurgery. Recommended repeat CAT scan in 24 hours. -Neuro checks -2d echo and carotid US unremarkable -Pt/OT/ST -ASA daily FREDA, creatine 1.4, Unknown baseline -IVF -Trend creatine -avoid nephrotoxins HTN, chronic -Clonidine PRN -Monitor vitals Afib, chronic -patient is on Eliquis and states compliant, ?failure. May benefit from different form of coagulant such as Coumadin. Will defer to neurology. -monitor telemetry/Holter monitor DVT prophylaxis: SCDs, hold chemical due to hemorrhage Discharge Planning: Patient appeared to be doing fairly well in contrast to his imaging studies. Continue stroke workup. Will need clearance from neurology and neurosurgery. We will also need in food regarding anticoagulation.
[2017-12-31 18:10] LABS: Hemoglobin A1c 5.4 % (4.3-6.0)
--- NOTE | 2017-12-31 21:04 | MB ---
cc: Gama Acuna MD, PhD DATE: 12/31/2017 REASON FOR CONSULTATION: Stroke. HISTORY OF PRESENT ILLNESS: Mr. Li is a nice 77-year-old man with atrial fibrillation who 10 days ago noted the acute onset of weakness involving the left hand and left leg, which has since resolved. Yesterday, while he was driving, he acutely became confused and disoriented. He came to the ER. He was at the grocery store, acutely became disoriented, but he was able to drive home. Once home, he called for help. He was very confused. He has had a headache as well for the past several days. PAST MEDICAL HISTORY: History of atrial fibrillation and normally takes Eliquis, hypertension, hip surgery and knee surgery. CURRENT MEDICATIONS: 1. Aspirin 81 mg daily. 2. Catapres p.r.n. 3. Insulin p.r.n. 4. Valsartan p.r.n. NEUROLOGICAL EXAMINATION: VITAL SIGNS: His blood pressure is 163/87, pulse 56, respiratory rate 17, temperature 98 degrees. HIGHER CORTICAL FUNCTION: He is alert and oriented x3. Speech is normal. CRANIAL NERVES: Intact. MOTOR: At the present time shows 5/5 strength of all groups in both upper and lower extremities. There is no drift. Fine motor skills are normal. Reflexes are symmetric. IMAGING STUDIES: CT brain is within normal limits. MRI of the brain shows multiple small focal areas of acute stroke in the right frontal and parietal lobes, right caudate, right posterior lateral corpus callosum, right cerebellar hemisphere. A small area of subarachnoid hemorrhage is identified in the right parietal area as well. Carotid ultrasound, mild plaquing, no significant stenosis identified. Echocardiogram is within normal limits. EF is 60% to 65%. LABORATORY DATA: White count 7700, hemoglobin 16, hematocrit 46%. PT 10.9, INR 1.1, APTT 28. Sodium 142, potassium 3.8, chloride 110, CO2 of 21.2, BUN 19, creatinine 1.48, glucose 106. Cholesterol 152, LDL 95, HDL 34.8. IMPRESSION: Multiple strokes in multiple territories, probably cardioembolic, with small subarachnoid hemorrhage. RECOMMENDATIONS: Continue to hold the Eliquis because of the subarachnoid hemorrhage. Recommend repeating the MRI in the next 2 weeks to follow up on the hemorrhage. Once that resolves, could resume Eliquis. We will get an EEG to be sure there is no evidence of any seizure activity. If the patient is stable, he would be okay to discharge home tomorrow and I could see him in followup in 2 weeks. Gama Acuna MD, PhD GLORIA/nahid , 07:15 PM , 07:22 PM
--- NOTE | 2018-01-01 08:25 | P.PN ---
Subjective Interval history: Patient seen and examined this morning, their vitals are stable and the patient is afebrile. Denies CP or SOB. Reports feeling like himself. Wants to go home. Physical Exam Vital signs: Vital Signs 12/31/17 09:05 12/31/17 12:00 12/31/17 16:00 Temperature 98.0 F 98.0 F Pulse Rate 64 56 L 62 Respiratory Rate 17 17 Blood Pressure 163/87 H 176/98 H Pulse Oximetry 97 96 12/31/17 17:17 12/31/17 20:00 01/01/18 00:00 Temperature 98 F 98 F Pulse Rate 64 66 72 Respiratory Rate 18 17 Blood Pressure 170/94 H 153/88 H Pulse Oximetry 98 98 01/01/18 04:00 Temperature 97.9 F Pulse Rate 68 Respiratory Rate 17 Blood Pressure 162/56 H Pulse Oximetry 97 Intake & Output 12/31/17 01/01/18 01/01/18 18:59 06:59 18:59 Weight 79.5 kg Other: # Voids 2 Narrative: GENERAL: This is a well-nourished, well-developed patient, in no apparent distress. CARDIOVASCULAR: Normal rate and regular rhythm without murmurs, gallops, or rubs. RESPIRATORY: Good respiratory efforts. Breath sounds equal and clear to auscultation bilaterally. GASTROINTESTINAL: Abdomen soft, non-tender, non-distended. Normal active bowel sounds MUSCULOSKELETAL: Extremities without cyanosis, or edema. NEURO: Alert & Oriented x4 to person, place, time, situation. Moves all ext x4 PSYCH: Appropriate mood and affect. Results - Labs CBC & Chem 7: 12/30/17 16:00 12/30/17 16:00 Laboratory Results - last 24 hr 12/31/17 06:28 Hemoglobin A1c 5.4 - Imaging Carotid Doppler Study 12/30/17 00:00 CONCLUSION: Mild plaque at the right carotid bulb region. A significant stenosis is not seen on either side. Chest X-Ray 12/30/17 15:58 CONCLUSION: Cardiomegaly and findings of congestive heart failure. Head CT 12/30/17 15:58 CONCLUSION: 1. Unremarkable CT scan of the brain. Head MRI 12/30/17 18:41 CONCLUSION: 1. Multiple small focal areas of acute infarction in the right frontal and parietal lobes, right caudate, right posterior lateral corpus callosum, and right cerebellar hemispheres. These were all present previously. 2. New linear signal seen in the posterior right parietal lobe thought to be cortical sulci consistent with subarachnoid hemorrhage. This appears new. 3. Scattered areas of suspected small vessel ischemic change in the white matter. Assessment and Plan - Assessment (1) Acute CVA (cerebrovascular accident) Code(s): I63.9 - Cerebral infarction, unspecified Status: Acute - Plan In summary this is a 77-year-old male with medical significant for hypertension and A. fib who presented to [facility] with chief complaint of confusion and left hand weakness. Patient admitted for CV: CVA -Head CT negative -MRI: Multiple small focal areas of acute infarction in the right frontal and parietal lobes, right caudate, right posterior lateral corpus callosum, and right cerebellar hemispheres and all were present prior, there is also a new linear signal seen in the posterior right parietal lobe thought to be cortical sulci consistent with subarachnoid hemorrhage. - Neurosurgery was consulted: Recommend nonoperative management, follow-up CT in 24 hours (will order), neurochecks serial fashion. -Neurology was consulted: EEG ordered, further reccs pending -Continue aspirin, statin, PT, OT, A1c 5.4 AK I Unclear baseline Avoid nephrotoxic agents, IV fluids Hypertension -Goal BP between 140s and 160s systolic -Continue valsartan Clonidine as needed A. fib -Was on Eliquis as an outpatient, will need alternative once cleared by neurosurgery DVT prophylaxis - Bilateral SCDs, - Hold chemical prophylaxis due to hemorrhage GI prophylaxis Protonix Discharge Planning: D/C pending neuro clearance.
[2018-01-01] MEDS ORDERED: VALSARTAN 80 MG PO SCH (09:00)
[2018-01-01] MEDS ORDERED: OMEPRAZOLE 2 MG PO SCH (09:00)
[2018-01-01 10:14] LABS: Calcium 8.7 mg/dL (8.5-10.1); Potassium 4.2 meq/L (3.5-5.1)
--- NOTE | 2018-01-01 10:17 | CT ---
EXAM DATE: 01/01/2018 10:13 AM EDT AGE/SEX: 77 years / Male INDICATIONS: Post cerebrovascular accident neurological evaluation. CLINICAL DATA: This is the patient's subsequent encounter. Patient reports that signs and symptoms h ave been present for 2 days and indicates a pain score of 0/10. MEDICAL/SURGICAL HISTORY: Cerebrovascular disease. Hypertension. None. RADIATION DOSE: 56.35 CTDI (mGy) COMPARISON: [facility] [place], MR HEAD W & W/O CONTRAST, 12/30/2017. [facility] [place], CT HEAD W/O CONTRAST, 12/30/2017. . TECHNIQUE: CT of the head without contrast. Using automated exposure control and adjustment of the mA and/or kV according to patient size, radiation dose was kept as low as reasonably achievable to ob tain optimal diagnostic quality images. DICOM format image data is available electronically for revi ew and comparison. FINDINGS: There is mild prominence of the CSF spaces, ventricles and cisterns. There is no intracranial hemorrh age or mass. Patchy periventricular white matter disease. This includes low-density foci along the ri ght periventricular white matter corresponding to the areas of acute infarct noted on recent MRI. Oss eous structures are intact. CONCLUSION: 1. Mild volume loss. 2. No hemorrhage. 3. Tiny areas of low density in the right periventricular white matter correspond to the areas of in farction noted on recent MRI. . Electronically signed by: Anatoliy Rice MD 01/01/2018 10:16 AM EDT
--- NOTE | 2018-01-01 16:14 | P.PNNEU ---
Subjective Subjective Comments: Pt developed some numbness in left index finger when using hand today which has resolved Active Medications: Active Medications Aspirin (Aspirin Chew) 81 mg PO DAILY [facility] Last Admin: 01/01/18 08:51 Dose: 81 mg Clonidine HCl (Catapres) 0.1 mg PO Q6H PRN PRN Reason: SBP>160, DBP>90 Last Admin: 01/01/18 12:08 Dose: 0.1 mg Pantoprazole Sodium (Protonix) 40 mg PO DAILY [facility] Last Admin: 01/01/18 08:50 Dose: 40 mg Pt:Valsartan 80 Mg 0 each PO DAILY [facility] Sodium Chloride (Ns Flush) 2 ml IV.FLUSH BID [facility] Last Admin: 01/01/18 08:51 Dose: 2 ml Sodium Chloride (Ns Flush) 2 ml IV.FLUSH PRN PRN PRN Reason: FLUSH AFTER USING IV ACCESS Allergies/Adverse Reactions: Allergies Allergy/AdvReac Type Severity Reaction Status Date / Time zolpidem AdvReac Severe Psychosis Verified 12/30/17 15:50 Physical Exam Vital signs: Vital Signs 12/31/17 17:17 12/31/17 20:00 01/01/18 00:00 Temperature 98 F 98 F Pulse Rate 64 66 72 Respiratory Rate 18 17 Blood Pressure 170/94 H 153/88 H Pulse Oximetry 98 98 01/01/18 04:00 01/01/18 08:00 01/01/18 09:00 Temperature 97.9 F 97.9 F Pulse Rate 68 61 60 Respiratory Rate 17 19 Blood Pressure 162/56 H 157/88 H Pulse Oximetry 97 96 01/01/18 12:00 Temperature 97.5 F L Pulse Rate 69 Respiratory Rate 18 Blood Pressure 190/87 H Pulse Oximetry 96 Intake & Output 12/31/17 01/01/18 01/01/18 18:59 06:59 18:59 Weight 79.5 kg Other: # Voids 2 Date of Last Bowel Movement 12/31/17 - Routine Neurological Exam alert, oriented, speech is normal CN intact MOTOR 5/5 BUE Objective Radiology Results: CT brain today is stable Laboratory Results - last 24 hr 12/31/17 01/01/18 01/01/18 06:28 09:07 14:51 Sodium 141 Potassium 4.2 Chloride 105 Carbon Dioxide 25.0 Anion Gap 11 BUN 14 Creatinine 1.43 H Estimated GFR 48 L POC Glucose 94 Random Glucose 107 H Hemoglobin A1c 5.4 Calcium 8.7 Review/Management - Review/Management Plan: neuro exam is stable continue to hold eliquis due to small subarachnoid hemorrhage associated with the stroke
[2018-01-01] MEDS: Acetaminophen 325 MG Tablet PO PRN (17:32)
--- NOTE | 2018-01-01 22:20 | MG ---
cc: Gama Acuna MD, PhD DATE OF STUDY: 01/01/2018 TEST NUMBER: [id number] TECHNIQUE: A 17-channel EEG. DESCRIPTION: The background rhythm is symmetrical alpha, frequency 8-9 Hz, amplitude about 20 microvolts. No lateralizing features are seen. No epileptiform discharges are present. Photic results in a normal driving response. INTERPRETATION: Normal electroencephalogram. Gama Acuna MD, PhD GLORIA/rw , 04:45 PM , 04:48 PM
[2018-01-01] MEDS ORDERED: Melatonin 5 MG Tablet PO PRN (23:41)
[2018-01-02] MEDS: Acetaminophen 325 MG Tablet PO PRN (04:42)
--- NOTE | 2018-01-02 07:52 | P.PN ---
Subjective Interval history: Patient seen and examined this morning, their vitals are stable and the patient is afebrile. Wants to go home. States he feels 100% like himself. Had some left index finger numbness that resolved. Also had headache yesterday that resolved with tylenol. Physical Exam Vital signs: Vital Signs 01/01/18 08:00 01/01/18 09:00 01/01/18 12:00 Temperature 97.9 F 97.5 F L Pulse Rate 61 60 69 Respiratory Rate 19 18 Blood Pressure 157/88 H 190/87 H Pulse Oximetry 96 96 01/01/18 16:00 01/01/18 17:00 01/01/18 20:00 Temperature 97.3 F L 98 F Pulse Rate 58 L 54 L 54 L Respiratory Rate 17 17 Blood Pressure 150/80 H 130/73 Pulse Oximetry 96 98 01/02/18 00:00 01/02/18 04:00 Temperature 98 F 97.8 F Pulse Rate 58 L 56 L Respiratory Rate 17 17 Blood Pressure 129/75 143/70 H Pulse Oximetry 97 94 L Intake & Output 01/01/18 01/02/18 01/02/18 18:59 06:59 18:59 Intake Total 575 / 575 Balance 575 / 575 Weight 79.6 kg Intake: Oral 575 / 575 Other: # Voids 3 Date of Last Bowel Movement 12/31/17 # Bowel Movements 1 Narrative: GENERAL: This is a well-nourished, well-developed patient, in no apparent distress. CARDIOVASCULAR: Irregular rhythm without murmurs, gallops, or rubs. RESPIRATORY: Good respiratory efforts. Breath sounds equal and clear to auscultation bilaterally. GASTROINTESTINAL: Abdomen soft, non-tender, non-distended. Normal active bowel sounds MUSCULOSKELETAL: Extremities without cyanosis, or edema. NEURO: Alert & Oriented x4 to person, place, time, situation. Moves all ext x4 PSYCH: Appropriate mood and affect. Results - Labs CBC & Chem 7: 12/30/17 16:00 01/01/18 09:07 Laboratory Results - last 24 hr 01/01/18 01/01/18 09:07 14:51 Sodium 141 Potassium 4.2 Chloride 105 Carbon Dioxide 25.0 Anion Gap 11 BUN 14 Creatinine 1.43 H Estimated GFR 48 L POC Glucose 94 Random Glucose 107 H Calcium 8.7 - Imaging Impressions Head CT 01/01/18 00:00 CONCLUSION: 1. Mild volume loss. 2. No hemorrhage. 3. Tiny areas of low density in the right periventricular white matter correspond to the areas of infarction noted on recent MRI. . Assessment and Plan - Assessment (1) Acute CVA (cerebrovascular accident) Code(s): I63.9 - Cerebral infarction, unspecified Status: Acute - Plan In summary this is a 77-year-old male with medical significant for hypertension and A. fib who presented to [facility] with chief complaint of confusion and left hand weakness. Patient admitted for CVA: CVA -Head CT negative -MRI: Multiple small focal areas of acute infarction in the right frontal and parietal lobes, right caudate, right posterior lateral corpus callosum, and right cerebellar hemispheres and all were present prior, there is also a new linear signal seen in the posterior right parietal lobe thought to be cortical sulci consistent with subarachnoid hemorrhage. - Neurosurgery was consulted: Recommend nonoperative management, follow-up CT with no hemorrhage, neurochecks serial fashion. - Neurology was consulted: EEG ordered negative, continue to hold Eliquis -Continue aspirin, statin, PT, OT, A1c 5.4 AK I Unclear baseline Avoid nephrotoxic agents, IV fluids Hypertension -Goal BP between 140s and 160s systolic -Continue valsartan Clonidine as needed A. fib -Was on Eliquis as an outpatient, will need alternative once cleared by neurosurgery DVT prophylaxis - Bilateral SCDs, - Hold chemical prophylaxis due to hemorrhage GI prophylaxis Protonix Discharge Planning: D/C pending neuro clearance.
[2018-01-02 09:50] VITALS: RESP 20; TEMP 97.5
[2018-01-02 13:09] VITALS: BP 153/77; PULSE 66; O2SAT 97
--- NOTE | 2018-01-02 13:55 | P.DS ---
Date of admission: 12/30/17 18:07 Primary care physician: Chen Hendricks DO Brief History from admission: 77 y/o male with a history of HTN, and afib presented to the ED with confusion and left hand weakness. Patient only remembers some of the events today but states he was at grocery store and he became disoriented but able to drive home. When he got home he called for help. He does remember 2 days ago he had left hand weakness that has somewhat resolved. Patient denies any chest pain, sob, fever, chills, headaches or dizziness. He is currently on Eliquis at home and states he has been compliant with it. DS: Diagnosis - Discharge Diagnosis (1) Acute CVA (cerebrovascular accident) Status: Acute DS: Summary Hospital Course: In summary this is a 77-year-old male with medical significant for hypertension and A. fib who presented to [facility] with chief complaint of confusion and left hand weakness. Patient admitted for CVA. Details below. Cleared by neuro, ángela trotter, d/c on ASA. CVA -Head CT negative -MRI: Multiple small focal areas of acute infarction in the right frontal and parietal lobes, right caudate, right posterior lateral corpus callosum, and right cerebellar hemispheres and all were present prior, there is also a new linear signal seen in the posterior right parietal lobe thought to be cortical sulci consistent with subarachnoid hemorrhage. - Neurosurgery was consulted: Recommend nonoperative management, follow-up CT with no hemorrhage, neurochecks serial fashion. - Neurology was consulted: EEG ordered negative, continue to hold Eliquis -Continue aspirin, statin, PT, OT, A1c 5.4 AK I Unclear baseline Avoid nephrotoxic agents, IV fluids Hypertension -Goal BP between 140s and 160s systolic -Continue valsartan Clonidine as needed A. fib -Was on Eliquis as an outpatient, will need alternative once cleared by neurosurgery DVT prophylaxis - Bilateral SCDs, - Hold chemical prophylaxis due to hemorrhage GI prophylaxis - Time Spent with Patient Total time spent providing and/or coordinating discharge services: Greater than 30 minutes Exam Vital signs: Vital Signs 01/01/18 16:00 01/01/18 17:00 01/01/18 20:00 Temperature 97.3 F L 98 F Pulse Rate 58 L 54 L 54 L Respiratory Rate 17 17 Blood Pressure 150/80 H 130/73 Pulse Oximetry 96 98 01/02/18 00:00 01/02/18 04:00 01/02/18 08:00 Temperature 98 F 97.8 F 97.5 F L Pulse Rate 58 L 56 L 56 L Respiratory Rate 17 17 20 Blood Pressure 129/75 143/70 H 174/92 H Pulse Oximetry 97 94 L 95 01/02/18 12:00 Temperature 97.5 F L Pulse Rate 66 Respiratory Rate 20 Blood Pressure 153/77 H Pulse Oximetry 97 Intake & Output 01/01/18 01/02/18 01/02/18 18:59 06:59 18:59 Intake Total 575 / 575 Balance 575 / 575 Weight 79.6 kg Intake: Oral 575 / 575 Other: # Voids 3 Date of Last Bowel Movement 12/31/17 01/02/18 # Bowel Movements 1 Results Procedures completed during hospitalization: na Labs on day of discharge: Labs from last 24 hours 01/01/18 14:51 POC Glucose 94 - Impressions ITS Impressions Carotid Doppler Study 12/30/17 00:00 CONCLUSION: Mild plaque at the right carotid bulb region. A significant stenosis is not seen on either side. Chest X-Ray 12/30/17 15:58 CONCLUSION: Cardiomegaly and findings of congestive heart failure. Head MRI 12/30/17 18:41 CONCLUSION: 1. Multiple small focal areas of acute infarction in the right frontal and parietal lobes, right caudate, right posterior lateral corpus callosum, and right cerebellar hemispheres. These were all present previously. 2. New linear signal seen in the posterior right parietal lobe thought to be cortical sulci consistent with subarachnoid hemorrhage. This appears new. 3. Scattered areas of suspected small vessel ischemic change in the white matter. Head CT 01/01/18 00:00 CONCLUSION: 1. Mild volume loss. 2. No hemorrhage. 3. Tiny areas of low density in the right periventricular white matter correspond to the areas of infarction noted on recent MRI. . Discharge Plan - Discharge Disposition Patient Disposition: 01 Discharge Home - Discharge Condition Condition: Stable - Discharge Order Discharge Orders: Discharge Order (Routine); Ordered 01/02/18 Ordered By: Romi Rasmussen - Discharge Details Anticipated Discharge Date: 01/02/18 Discharge Comment: Discharge when cleared by Neurology - Physicians Team Primary Care Provider: Chen Hendricks Attending Provider: Romi Rasmussen Other Providers: Gama Acuna MD, PhD ; [employer] ; Twin Coreas MD ; Ann Bedolla MD
--- NOTE | 2018-01-03 13:56 | HM ---
Date Performed: 12/31/2017 Time Performed: 18:53:00 HOOKUP DATE: 12/31/17 06:53:00 PM Fri ANALYSIS START TIME: 12/31/2017 6:58:00 PM ANALYSIS END TIME: 01/01/2018 5:03:25 PM PATIENT AGE: 77 PATIENT HEIGHT PATIENT WEIGHT DRUG LIST PATIENT DIAGNOSIS: ACUTE CVA AMS TEST NARRATIVE: The patient's average heart rate was 65 BPM. Heart rates greater than 120 B PM were noted < 1% of the time. No episodes of bradycardia were noted. No pauses exceeding 2.0 s econds were noted. 37 ventricular ectopics, which represented < 1% of the total beat count, were noted. The highest ventricular ectopic frequency occurred from 01:00 PM to 02:00 PM Sat. During thi s time 12 VE(s) occurred. Ventricular ectopics were observed as 37 isolated beat(s) only. No couple ts or runs were noted. 572 supraventricular ectopics, which represented 1% of the total beat coun t, were noted. The highest supraventricular ectopic frequency occurred from 06:00 AM to 07:00 AM Sat . During this time 45 SVE(s) occurred. No episodes of ST depression (defined as -1.0 mm or more) were noted in channel 1. No episodes of ST depression (defined as -1.0 mm or more) were noted in ch kye 2. No episodes of ST depression (defined as -1.0 mm or more) were noted in channel 3. TEST INTERPRETATION: The patient undergoes a holter monitor to see if there is any relationship of his neurologic symptom with an underlying rhythm disturbance. No diary is provided. Only the expan ded tracings are subject to interpretation. The patient does have premature atrial and premature vent ricular contractions. Ther are frequent short bursts of nonsustained supraventricular tachycardia up to 140 bpm. No complex ventricular ectopy is noted. No atrial fibrillation or atrial flutter is speci fically detected, but the bursts of supraventricular tachycardia are a common trigger to the atrial f ibrillation and atrial flutter so those rhythm disturbances should be further excluded if clinically appropriate. Conclusions: 1. Occasional PACs and PVCs 2. Frequent bursts of supraventricular tachyc ardia, but no definite atrial fibrillation or atrial flutter. 3. No other significant tachy or ilia arrhythmia 4. No diary provided so it is unknown as to whether the patient is symptomatic 5. Burst of supraventricular tachycardia is noted. Can trigger atrial fibrillation and atrial flutter so further evaluation may be appropriate if clinically indicated. Signed by : Teresa Black
== END 2018-01-02 14:23 | disposition home or self-care (01) ==
LOC: NEPE 15:41 → NEDA 18:07 → N05 12-31 01:20
PROVIDERS: ADMIT Family Medicine; ATTEND Family Medicine

== ENCOUNTER 2018-01-23 04:56 | Inpatient (IN) ==
[2018-01-23] MEDS ORDERED: dilTIAZem Inj 125 MG in Sodium Chlor 0.9% Inj 100 ML IV.CONT PRN (05:03)
[2018-01-23 05:27] LABS: Baso # (Auto) 0.5 th/mm3 (0.0-0.2); Baso % (Auto) 4.7 % (0.0-2.0); Eos # (Auto) 0.2 th/mm3 (0.0-0.4); Eos % (Auto) 2.2 % (0.0-4.0); Hematocrit 48.7 % (39.0-51.0); Hemoglobin 16.2 gm/dL (13.0-17.0); Lymph % (Auto) 18.3 % (9.0-44.0); Mean Corpuscular HGB Conc 33.2 % (32.0-36.0); Mean Corpuscular Hemoglobin 29.2 pg (27.0-34.0); Mean Corpuscular Volume 87.8 fL (80.0-100.0); Mean Platelet Volume 8.1 fL (7.0-11.0); Mono # (Auto) 1.1 th/mm3 (0.0-0.9); Mono % (Auto) 10.3 % (0.0-8.0); Neut # (Auto) 7.1 th/mm3 (1.8-7.7); Neut % (Auto) 64.5 % (16.0-70.0); Platelet Count 272 th/mm3 (150-450); Red Blood Count 5.55 mil/mm3 (4.50-5.90); Red Cell Distribution Width 14.1 % (11.6-17.2); White Blood Count 10.9 th/mm3 (4.0-11.0)
--- NOTE | 2018-01-23 05:31 | XR ---
EXAM DATE: 01/23/2018 5:29 AM EDT AGE/SEX: 77 years / Male INDICATIONS: Chest pain. A-fib. CLINICAL DATA: This is the patient's initial encounter. Patient reports that signs and symptoms have been present for 1 day and indicates a pain score of 5/10. MEDICAL/SURGICAL HISTORY: Congestive heart failure. Chronic obstructive pulmonary disease. Cer ebrovascular disease. Hypertension. Muscular dystrophy. Lyme's disease. Total knee replacement, rig ht. Right hip replacement. COMPARISON: [facility] [place], CHEST 1V SINGLE AP, 12/30/2017. . FINDINGS: Mild and mostly chronic appearing interstitial opacities are seen of both lungs. Previously seen area s of patchy parenchymal consolidation have largely resolved in the interim. No pleural effusion seen. No pneumothorax. Heart size stable, within normal limits. Tortuous thoracic aorta again seen. CONCLUSION: Mild chronic interstitial opacities. No acute infiltrate seen. Normal heart size. Electronically signed by: Shlomo Corea MD 01/23/2018 5:30 AM EDT
[2018-01-23 05:35] LABS: Chloride 105 meq/L (98-107); Potassium 3.8 meq/L (3.5-5.1); Sodium 136 meq/L (136-145)
[2018-01-23 05:38] LABS: Albumin 3.7 g/dL (3.4-5.0); Calcium 8.6 mg/dL (8.5-10.1)
[2018-01-23 05:39] LABS: Anion Gap 10 meq/L (5-15); Blood Urea Nitrogen 17 mg/dL (7-18); Carbon Dioxide 20.9 meq/L (21.0-32.0); Glucose,Random 98 mg/dL (74-106)
[2018-01-23 05:42] LABS: Alanine Aminotransferase 22 U/L (12-78); Aspartate Aminotransferase 23 U/L (15-37); Glomerular Filtration Rate 42 mL/min (>89)
[2018-01-23 05:43] LABS: Total Protein 7.9 g/dL (6.4-8.2)
[2018-01-23 05:45] LABS: Alkaline Phosphatase 67 U/L (45-117)
[2018-01-23 05:47] LABS: Troponin I 0.03 ng/mL (0.02-0.05)
[2018-01-23 06:02] LABS: Activated Partial Thrombo Time 33.4 sec (24.3-30.1); INR 3.9 Ratio
--- NOTE | 2018-01-23 06:17 | ED ---
HPI General Chief Complaint: Arrhythmia/Palpitations Stated Complaint: AFIB Time Seen by Provider: 01/23/18 05:02 Source: patient and old records reviewed Mode of arrival: ambulatory Limitations: no limitations History of Present Illness complaint: rapid heart beat Time: 23:00 Duration: constant Context: occurred during rest Arrhythmia history: atrial fibrillation Associated symptoms: denies other symptoms Treatments prior to arrival: other (none) Related Data Home Medications Medication Instructions Recorded Confirmed omeprazole 2 tab/day PO DAILY 12/31/17 01/23/18 warfarin 5 mg PO DAILY 01/23/18 01/23/18 Previous Rx's Medication Instructions Recorded clonidine HCl [Catapres] 0.1 mg PO Q6H PRN tab 01/02/18 Allergies Allergy/AdvReac Type Severity Reaction Status Date / Time zolpidem AdvReac Severe Psychosis Verified 01/23/18 06:09 Review of Systems ROS: all other systems reviewed are negative [facility] Medical History Medical History Atrial fibrillation (Acute) Congestive heart failure (CHF) (Acute) History of COPD (Acute) Lyme disease (Acute) Muscular dystrophy (Acute) Stroke (Acute) Hypertension (Acute) Surgical History Surgical History Hx of cardiac cath (Acute) History of hip surgery (Acute) History of knee surgery (Acute) Family History Family History Mother CVA (cerebral vascular accident) Father CVA (cerebral vascular accident) Social History Social History Substance History: Active Abuse Second Hand Smoke Exposure: No Smoking Status: Former smoker Tobacco Type: Cigarettes How Often Do You Have a Drink Containing Alcohol: 2 to 3 times a week Recent Out of Country Travel within the Last 8 Weeks: No Substance Abuse Detail Marijuana: Substance Use Status: Active Route Used Substance Abuse: Inhalation Substance Frequency: Once a month Immunization History Tetanus Immunization: <5 Years Hx Influenza Vaccine This Season: No Exam Const General: cooperative, healthy appearing and comfortable Orientation: alert, awake and oriented x3 HENMT Head: normal to inspection, normocephalic and atraumatic Eyes General: appearance normal, both eyes and all related structures Conjunctivae: conjunctivae normal Sclera: sclerae normal EOM: EOM intact bilaterally Neck Neck: normal visual inspection and full ROM Chest Chest: normal inspection of the chest Resp Effort & Inspection: normal respiratory effort and able to speak in complete sentences Auscultation: clear to auscultation bilaterally Cardio Rate: tachycardic Rhythm: abnormal rhythm GI Inspection: normal to inspection Palpation: soft Back/Spine/Pelvis Cervical Spine: cervical ROM normal Thoracic/Lumbar Spine: thoraco-lumbar ROM normal Skin General: no rashes or lesions noted, turgor normal and dry skin Neuro General: alert, awake, oriented x3, moves all extremities and CN's II-XI intact bilaterally Extrem General: normal to inspection, full ROM and no pedal edema Right upper extremity: no edema Psych Appearance: grossly normal Mental Status: mental status grossly normal Speech and Movement: speech and movement normal Mood: congruent mood Affect: normal affect Attitude: cooperative Thought Process: normal Thought Content: normal Judgment: judgment good Course Consultations Consultation #1: Dr. Benavides Time: 06:23 Initial Documented Vital Signs Temperature 97.7 F 01/23/18 05:00 Pulse Rate 135 H 01/23/18 05:00 Respiratory Rate 20 01/23/18 05:00 Blood Pressure 160/94 H 01/23/18 05:00 Pulse Oximetry 96 01/23/18 05:00 Last Documented Vital Signs Temperature 97.7 F 01/23/18 05:00 Pulse Rate 76 01/23/18 06:01 Respiratory Rate 20 01/23/18 05:00 Blood Pressure 104/73 01/23/18 06:09 Pulse Oximetry 98 01/23/18 05:51 Critical Care Time Critical Care Time: Yes Total Critical Care Time: 30 Attestation: Time to perform other separately billable procedures was not included in the critical care time. My time did not include minutes spent treating any other patients simultaneously or on activities that did not directly contribute to the patient's treatment. The services I provided to this patient were to treat and/or prevent clinically significant deterioration due to atrial fibrillation with a rapid ventricular response I provided critical care services requiring my management, as noted below: Chart data review, documentation time, medication orders and management, vital sign assessments/reviewing monitor data, ordering and reviewing lab tests, ordering and interpreting/reviewing x-rays and diagnostic studies, care of the patient and discussion of the patient with the admitting physicians Medical Decision Making MDM Narrative Medical decision making narrative: This patient presents status post the onset of a rapid, irregular heartbeat at 11 PM. He has a known history of A. fib. His underlying usual rhythm is probably sinus. He has been on Eliquis in the past because of his atrial fibrillation but it was stopped on about 12/30 because of a CVA with a small subarachnoid hemorrhage. The patient reports that he has subsequently been started on warfarin. This patient was initially evaluated at an outside hospital. Admission to their facility was recommended. The patient reports that he elected to leave there to come here. On exam, he is in atrial fibrillation with a rapid ventricular response. He has been treated here with a bolus of Cardizem followed by a drip. His ventricular rate is now controlled. Medical Screen Exam Complete: Yes Emergency Medical Condition: Yes Differential Diagnosis Differential Diagnosis: Differential diagnosis of tachycardia includes but is not limited to PSVT, atrial fibrillation with a rapid ventricular response, sinus tachycardia (due to hypovolemia, anemia, thyrotoxicosis, PE) Medical Records Medical records reviewed: Yes I reviewed the patient's medical records. The patient's most pertinent history is that he has a history of atrial fibrillation. He had a CVA on about 12/30 which was complicated by a small subarachnoid hemorrhage. He was taken off of Eliquis at that time. Lab Data Lab results reviewed: Yes I reviewed the patient's lab results. Result diagrams: 01/23/18 05:20 01/23/18 05:20 Lab Results 01/23/18 01/23/18 01/23/18 Range/Units 05:20 05:20 05:30 CBC w Diff Auto diff final WBC 10.9 (4.0-11.0) th/mm3 RBC 5.55 (4.50-5.90) mil/mm3 Hgb 16.2 (13.0-17.0) gm/dL Hct 48.7 (39.0-51.0) % MCV 87.8 (80.0-100.0) fL MCH 29.2 (27.0-34.0) pg MCHC 33.2 (32.0-36.0) % RDW 14.1 (11.6-17.2) % Plt Count 272 (150-450) th/mm3 MPV 8.1 (7.0-11.0) fL Neut % (Auto) 64.5 (16.0-70.0) % Lymph % (Auto) 18.3 (9.0-44.0) % Dillon % (Auto) 10.3 H (0.0-8.0) % Eos % (Auto) 2.2 (0.0-4.0) % Baso % (Auto) 4.7 H (0.0-2.0) % Neut # (Auto) 7.1 (1.8-7.7) th/mm3 Lymph # (Auto) 2.0 (1.0-4.8) th/mm3 Dillon # (Auto) 1.1 H (0.0-0.9) th/mm3 Eos # (Auto) 0.2 (0.0-0.4) th/mm3 Baso # (Auto) 0.5 H (0.0-0.2) th/mm3 WBC Differential . Differential Comment . PT 39.0 H D (9.8-11.6) sec INR 3.9 Ratio APTT 33.4 H (24.3-30.1) sec Sodium 136 (136-145) meq/L Potassium 3.8 (3.5-5.1) meq/L Chloride 105 (98-107) meq/L Carbon Dioxide 20.9 L (21.0-32.0) meq/L Anion Gap 10 (5-15) meq/L BUN 17 (7-18) mg/dL Creatinine 1.60 H (0.60-1.30) mg/dL Estimated GFR 42 L (>89) mL/min Random Glucose 98 (74-106) mg/dL Calcium 8.6 (8.5-10.1) mg/dL Total Bilirubin 0.5 (0.2-1.0) mg/dL AST 23 (15-37) U/L ALT 22 (12-78) U/L Alkaline Phosphatase 67 (45-117) U/L Troponin I 0.03 (0.02-0.05) ng/mL Total Protein 7.9 (6.4-8.2) g/dL Albumin 3.7 (3.4-5.0) g/dL Imaging Data Attestation: I personally reviewed and interpreted this imaging study as follows : Radiologist's impression: Chest X-Ray 01/23/18 05:04 CONCLUSION: Mild chronic interstitial opacities. No acute infiltrate seen. Normal heart size. ECG Data EKG Prior to Arrival: No Attestation: I personally reviewed and interpreted this ECG as follows: ( Initial EKG shows atrial fibrillation with a rapid ventricular response of 129. Repeat EKG shows atrial fibrillation with a ventricular rate of 74. Neither EKG shows ST segment changes.) Discharge Plan Discharge Disposition Patient Disposition: 30 Still Patient Discharge Details Diagnosis: Atrial fibrillation with RVR Physicians Team ED Provider: Pushpa Mathews Rxs /Orders / Referrals /Forms Prescriptions: No Action warfarin 5 mg Tablet 5 mg PO DAILY RF: 0 omeprazole 20 mg Tablet,Delayed Release (Dr/Ec) 2 tab/day PO DAILY RF: 0 clonidine HCl [Catapres] 0.1 mg Tablet 0.1 mg PO Q6H PRN (Reason: Sbp>160, Dbp>90) RF: 0 Status ED Status: With Doctor
[2018-01-23] MEDS ORDERED: Acetaminophen 325 MG Tablet PO PRN (06:20)
[2018-01-23] MEDS ORDERED: Bisacodyl 10 MG Supp RECTAL PRN (06:20)
[2018-01-23] MEDS ORDERED: Sod Chloride 0.9% Inj 1,000 ML IV.CONT SCH (06:30)
[2018-01-23] MEDS: Senna/Docusate Sodium 8.6/50 MG Tablet PO SCH ×2 (08:53→20:40)
[2018-01-23] MEDS: Pantoprazole Sodium 20 MG DR Tablet PO SCH ×2 (08:53→20:40)
--- NOTE | 2018-01-23 11:28 | P.HP ---
History of Present Illness Primary Care Physician: Blade Salazar Chief Complaint: Palpitations History of Present Illness: This is a pleasant 77-year-old male patient with a known medical history of hypertension, GERD and atrial fibrillation on Coumadin who presented to the ED with complaints of palpitations. Patient states that around 11 PM last evening he went to the bathroom and felt a fluttering in his chest, he does have a [employer] monitor device on his phone and able to check the rhythm of his heart, at that time he checked his rhythm and his heart rate was reportedly in the 130' s suggesting atrial fibrillation. Patient presented to [facility] at that time per patient he was diagnosed with atrial fibrillation RVR. He was given medication and his atrial fibrillation was controlled at that time. Patient requested to be discharged from their care and to follow-up with [facility] due to the familiarity of our facility therefore he presented to our ED. Upon presentation patient's EKG showed atrial fibrillation RVR with heart rate in the 130's. Was given a Cardizem bolus and placed on a Cardizem gtt and moved to the unit. Upon assessment today patient's heart rate is in the 80's. Denies any symptoms. It should be noted that patient was diagnosed with atrial fibrillation roughly 2 years ago at [facility], was originally placed on Eliquis. 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 His Eliquis was discontinued secondary to CVA while anticoagulated and at that time was prescribed Coumadin for a week now. His INR on presentation is 3.9. He does state that he was previously prescribed clonidine for his BP and this has recently been dcd and he was prescribed Cardizem for his atrial fibrillation but has not picked the prescription up. He is not currently on any rate control medications at home. - Diagnosis (1) Atrial fibrillation with RVR Inpatient Certification: I certify that the inpatient services were ordered in accordance with Medicare regulations governing the order. This includes certification that hospital inpatient services are reasonable and necessary and in the case of services not specified as inpatient-only under 42 CFR 419.22(n), that they are appropriately provided as inpatient services in accordance to with the 2-midnight benchmark under 43 CFR 412.3(e) Estimated Total Length of Stay (Days): 2 Plans for Post Hospital Care: Not yet determined Review of Systems All other systems reviewed negative except as stated in HPI [facility] - History History Provided By: Patient - Medical History Medical History: Medical History (Last Reviewed 01/23/18 @ 13:12 by Pat Galvez) Atrial fibrillation Congestive heart failure (CHF) History of COPD Lyme disease Muscular dystrophy Stroke Hypertension - Surgical History Surgical History: Surgical History (Last Reviewed 01/23/18 @ 13:12 by Pat Galvez) Hx of cardiac cath History of hip surgery History of knee surgery - Family History Family History: Family History (Last Reviewed 01/23/18 @ 13:12 by Pat Galvez) Mother CVA (cerebral vascular accident) Father CVA (cerebral vascular accident) - Tobacco History Second Hand Smoke Exposure: No Smoking Status: Former smoker Tobacco Type: Cigarettes - Alcohol History How Often Do You Have a Drink Containing Alcohol: 2 to 3 times a week - Substance Use History Substance History: Active Abuse - Substance Use Type Marijuana Status: Active Route Used: Inhalation Frequency: Once a month - Travel History Recent Travel Out of the Country Within the Last 8 Weeks: No - Immunization History Tetanus Immunization: <5 Years Hx Influenza Vaccine This Season: No Medications and Allergies Active Medications: Active Medications Acetaminophen (Tylenol) 650 mg PO Q4H PRN PRN Reason: Temp > 100.4 Al Hydroxide/Mg Hydroxide (Milk Of Magnesia Liq) 30 ml PO Q12H PRN PRN Reason: Mild Constipation Bisacodyl (Dulcolax Supp) 10 mg RECTAL DAILY PRN PRN Reason: SEVERE CONSITIPATION Diltiazem HCl (Cardizem) 30 mg PO QID [facility] Sodium Chloride (Ns Inj) 1,000 mls @ 100 mls/hr IV.CONT .Q10H [facility] Last Infusion: 01/23/18 09:31 Dose: 100 mls/hr Lactulose (Lactulose Liq) 30 ml PO DAILY PRN PRN Reason: SEVERE CONSITIPATION Ondansetron HCl (Zofran Inj) 4 mg IV.PUSH Q6H PRN PRN Reason: NAUSEA OR VOMITING Pantoprazole Sodium (Protonix) 20 mg PO BID [facility] Last Admin: 01/23/18 08:53 Dose: 20 mg Senna/Docusate Sodium (Angella-Colace) 1 tab PO BID [facility] Last Admin: 01/23/18 08:53 Dose: 1 tab Sennosides (Senokot) 17.2 mg PO Q12H PRN PRN Reason: Moderate Constipation Sodium Chloride (Ns Flush) 2 ml IV.FLUSH UNSCH PRN PRN Reason: FLUSH AFTER USING IV ACCESS Allergies Allergy/AdvReac Type Severity Reaction Status Date / Time zolpidem AdvReac Severe Psychosis Verified 01/23/18 06:09 Home Medications Medication Instructions Recorded Confirmed Type omeprazole 2 tab/day PO DAILY 12/31/17 01/23/18 History hydrocodone-acetaminophen [[place]] 1 tab PO Q6H PRN 01/23/18 01/23/18 History warfarin 5 mg PO DAILY 01/23/18 01/23/18 History Exam Vital signs: Vital Signs 01/23/18 05:00 01/23/18 05:51 01/23/18 06:01 Temperature 97.7 F Pulse Rate 135 H 76 Respiratory Rate 20 Blood Pressure 160/94 H 98/74 L Pulse Oximetry 96 98 01/23/18 06:09 01/23/18 06:20 01/23/18 06:22 Temperature 98.3 F Pulse Rate 72 84 Respiratory Rate 18 20 Blood Pressure 104/73 104/70 105/71 Pulse Oximetry 97 01/23/18 07:15 01/23/18 07:30 01/23/18 07:58 Temperature Pulse Rate 78 73 82 Respiratory Rate 18 18 18 Blood Pressure 114/73 119/67 133/72 Pulse Oximetry 98 97 98 01/23/18 08:02 01/23/18 08:15 01/23/18 08:30 Temperature Pulse Rate 78 86 82 Respiratory Rate Blood Pressure 114/75 136/93 H 117/78 Pulse Oximetry 01/23/18 09:00 01/23/18 09:30 Temperature Pulse Rate 82 Respiratory Rate 18 Blood Pressure 119/81 Pulse Oximetry 98 Intake & Output 01/22/18 01/23/18 01/23/18 18:59 06:59 18:59 Intake Total 360 / 360 Output Total 200 / 200 Balance 360 / 360 -200 / -200 Weight 80 kg Intake: Oral 360 / 360 Output: Urine 200 / 200 Narrative: GENERAL: Well-developed, well-nourished patient in [facility]. SKIN: Warm and dry. No rash. HEAD: Normocephalic. Atraumatic. EYES: Pupils equal and round. No scleral icterus. No injection or drainage. ENT: No nasal bleeding or discharge. Mucous membranes pink and moist. NECK: Supple. Trachea midline. CARDIOVASCULAR: Irregularly irregular rhythm. No murmur appreciated. RESPIRATORY: No accessory muscle use. Clear to auscultation. Breath sounds equal bilaterally. GASTROINTESTINAL: Abdomen soft, non-tender, nondistended. Normoactive bowel sounds x4. MUSCULOSKELETAL: No obvious deformities. Extremities without clubbing, cyanosis , or edema. NEUROLOGICAL: Awake and alert. No obvious cranial nerve deficits. Motor grossly within normal limits. 5/5 muscle strength in bilateral upper and lower extremities. Normal speech. PSYCHIATRIC: Appropriate mood and affect; insight and judgment normal. Results - Labs CBC & Chem 7: 01/23/18 05:20 01/23/18 05:20 Labs: Laboratory Results - last 24 hr 01/23/18 01/23/18 01/23/18 05:20 05:20 05:30 CBC w Diff Auto diff final WBC 10.9 RBC 5.55 Hgb 16.2 Hct 48.7 MCV 87.8 MCH 29.2 MCHC 33.2 RDW 14.1 Plt Count 272 MPV 8.1 Neut % (Auto) 64.5 Lymph % (Auto) 18.3 Blount % (Auto) 10.3 H Eos % (Auto) 2.2 Baso % (Auto) 4.7 H Neut # (Auto) 7.1 Lymph # (Auto) 2.0 Blount # (Auto) 1.1 H Eos # (Auto) 0.2 Baso # (Auto) 0.5 H WBC Differential . Differential Comment . PT 39.0 H D INR 3.9 APTT 33.4 H Sodium 136 Potassium 3.8 Chloride 105 Carbon Dioxide 20.9 L Anion Gap 10 BUN 17 Creatinine 1.60 H Estimated GFR 42 L Random Glucose 98 Calcium 8.6 Total Bilirubin 0.5 AST 23 ALT 22 Alkaline Phosphatase 67 Troponin I 0.03 Total Protein 7.9 Albumin 3.7 - Imaging Impressions Chest X-Ray 01/23/18 05:04 CONCLUSION: Mild chronic interstitial opacities. No acute infiltrate seen. Normal heart size. Caprini VTE Risk Assessment Caprini VTE Risk Assessment: Moderate/High Risk (score >= 2) VTE Pharmacological Exception Reason: Coagulopathy,INR elevated Caprini Risk Assessment Model: Point Value = 1 Point Value = 2 Point Value = 3 Point Value = 5 Age 41-60 Minor surgery BMI > 25 kg/m2 Swollen legs Varicose veins or History of unexplained or recurrent spontaneous Oral contraceptives or hormone replacement Sepsis (< 1 month) Serious lung disease, including pneumonia (< 1 month) Abnormal pulmonary function Acute myocardial infarction Congestive heart failure (< 1 month) History of inflammatory bowel disease Medical patient at bed rest Age 61-74 Arthroscopic surgery Major open surgery (> 45 min) Laparoscopic surgery (> 45 min) Malignancy Confined to bed (> 72 hours) Immobilizing plaster cast Central venous access Age >= 75 History of VTE Family history of VTE Factor V Leiden Prothrombin [id number] Lupus anticoagulant Anticardiolipin antibodies Elevated serum homocysteine Heparin-induced thrombocytopenia Other congenital or acquired thrombophilia Stroke (< 1 month) Elective arthroplasty Hip, pelvis, or leg fracture Acute spinal cord injury (< 1 month) Prophylaxis Regimen: Total Risk Factor Score Risk Level Prophylaxis Regimen 0-1 Low Early ambulation 2 Moderate Order ONE of the following: *Sequential Compression Device (SCD) *Heparin 5000 units SQ BID 3-4 Higher Order ONE of the following medications: *Heparin 5000 units SQ TID *Enoxaparin/Lovenox 40 mg SQ daily (WT < 150 kg, CrCl > 30 mL/min) *Enoxaparin/Lovenox 30 mg SQ daily (WT < 150 kg, CrCl > 10-29 mL/min) *Enoxaparin/Lovenox 30 mg SQ BID (WT < 150 kg, CrCl > 30 mL/min) AND/OR *Sequential Compression Device (SCD) 5 or more Highest Order ONE of the following medications: *Heparin 5000 units SQ TID (Preferred with Epidurals) *Enoxaparin/Lovenox 40 mg SQ daily (WT < 150 kg, CrCl > 30 mL/min) *Enoxaparin/Lovenox 30 mg SQ daily (WT < 150 kg, CrCl > 10-29 mL/min) *Enoxaparin/Lovenox 30 mg SQ BID (WT < 150 kg, CrCl > 30 mL/min) AND *Sequential Compression Device (SCD) Assessment and Plan - Assessment (1) Atrial fibrillation with RVR Code(s): I48.91 - Unspecified atrial fibrillation Status: Acute - Plan This is a 77-year-old male patient with: Atrial fibrillation with RVR Supratherapeutic INR -Patient presented to the ED with complaints of palpitations. EKG on presentation showing atrial fibrillation RVR with heart rate in the 130s. -Was given Cardizem bolus placed on Cardizem drip. -Will be given Cardizem 30 mg 4 times daily tonight. Wean drip. Assess response. -Continue cardiac telemetry, monitor for any arrhythmias. -Anticipate discharge in the morning rate controlled on Cardizem extended release. -INR 3.9 today. Will hold dose. Recheck level tomorrow. -Monitor closely. Supportive care. Hypertension, chronic: Patient has been recently taken off of losartan. Will monitor blood pressure trends and Cardizem. Recent acute CVA -Follows with Dr. Mclean, stable at this time. Supportive care. Continue Coumadin. History of CHF, CAD in stable at this time. 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 DVT prophylaxis: SCDs. Coumadin.
[2018-01-23] MEDS: dilTIAZem 30 MG Tablet PO SCH ×4 (11:39→20:40)
--- NOTE | 2018-01-23 12:24 | ECG ---
Date Performed: 01/23/2018 Time Performed: 05:04:00 PTAGE: 77 years EKG: ATRIAL FIBRILLATION WITH RAPID VENTRICULAR RESPONSE BORDERLINE LEFT AXIS DEVIATION MODERATE ST DEPRESSION ABNORMAL ECG INTERPRETATION BASED ON A DEFAULT AGE OF 40 YEARS PREVIOUS TRACING : 12/30/2017 16.05 Compared to previous tracing there is now atrial fibr illation With rapid ventricular response DOCTOR: Glenn Jacobo Interpretating Date/Time 01/23/2018 12:23:31
[2018-01-23] MEDS ORDERED: Melatonin 5 MG Tablet PO PRN (17:03)
[2018-01-24 04:11] VITALS: RESP 20; TEMP 98.5
[2018-01-24 05:12] LABS: Baso % (Auto) 0.3 % (0.0-2.0); Eos # (Auto) 0.3 th/mm3 (0.0-0.4); Eos % (Auto) 3.1 % (0.0-4.0); Hematocrit 45.6 % (39.0-51.0); Lymph # (Auto) 1.4 th/mm3 (1.0-4.8); Lymph % (Auto) 15.3 % (9.0-44.0); Mean Corpuscular HGB Conc 32.9 % (32.0-36.0); Mean Corpuscular Hemoglobin 28.8 pg (27.0-34.0); Mean Corpuscular Volume 87.3 fL (80.0-100.0); Mean Platelet Volume 8.7 fL (7.0-11.0); Mono # (Auto) 1.1 th/mm3 (0.0-0.9); Mono % (Auto) 11.6 % (0.0-8.0); Neut # (Auto) 6.5 th/mm3 (1.8-7.7); Neut % (Auto) 69.7 % (16.0-70.0); Platelet Count 222 th/mm3 (150-450); Red Blood Count 5.22 mil/mm3 (4.50-5.90); Red Cell Distribution Width 14.3 % (11.6-17.2); White Blood Count 9.3 th/mm3 (4.0-11.0)
[2018-01-24 05:20] LABS: Chloride 105 meq/L (98-107); Potassium 3.5 meq/L (3.5-5.1); Sodium 137 meq/L (136-145)
[2018-01-24 05:23] LABS: INR 4.2 Ratio
[2018-01-24 05:35] LABS: Alanine Aminotransferase 18 U/L (12-78); Alkaline Phosphatase 59 U/L (45-117); Anion Gap 8 meq/L (5-15); Aspartate Aminotransferase 15 U/L (15-37); Blood Urea Nitrogen 15 mg/dL (7-18); Carbon Dioxide 23.6 meq/L (21.0-32.0); Glomerular Filtration Rate 49 mL/min (>89); Glucose,Random 89 mg/dL (74-106); Total Protein 6.7 g/dL (6.4-8.2)
--- NOTE | 2018-01-24 07:45 | P.PNIM ---
Subjective Interval history: Follow up a fib RVR. Patient seen and examined, sitting on side of bed in [facility]. Patient initially seen this am with heart rate in the 120's with activity. Given dose of Cardizem as well as Metoprolol with much improvement in HR. Now currently in the 90's controlled with activity. Denies any chest pain or shortness of breath. Patient denies any reports of any acute events overnight. Off drip for several hours. Doing well and improved. BP stable. Spoke to bedside rn who states he is improved with controlled rate with activity. Discussed at length regarding plan for dc. Patient is to hold Coumadin today for INR 4.2, an ordered INR for tomorrow morning and be sent to PCP office. Patient is stable at this time and agreeable to the plan. Physical Exam Vital signs: Vital Signs 01/23/18 07:58 01/23/18 08:02 01/23/18 08:15 Temperature Pulse Rate 82 78 86 Respiratory Rate 18 Blood Pressure 133/72 114/75 136/93 H Pulse Oximetry 98 01/23/18 08:30 01/23/18 09:00 01/23/18 09:30 Temperature Pulse Rate 82 82 Respiratory Rate 18 Blood Pressure 117/78 119/81 Pulse Oximetry 98 01/23/18 09:45 01/23/18 12:00 01/23/18 12:18 Temperature 98.7 F Pulse Rate 86 84 Respiratory Rate 25 H Blood Pressure 149/89 H Pulse Oximetry 97 96 01/23/18 16:00 01/23/18 20:00 01/23/18 21:16 Temperature 98.7 F 98.5 F Pulse Rate 82 96 H Respiratory Rate 26 H 30 H Blood Pressure 120/70 139/64 Pulse Oximetry 97 96 01/24/18 00:00 01/24/18 04:00 Temperature 98.4 F 98.5 F Pulse Rate 82 93 H Respiratory Rate 22 20 Blood Pressure 117/74 117/83 Pulse Oximetry 97 94 L Intake & Output 01/23/18 01/24/18 01/24/18 18:59 06:59 18:59 Intake Total 600 / 600 360 / 360 Output Total 700 / 700 975 / 975 Balance -100 / -100 -615 / -615 Weight 82.8 kg 83.2 kg Intake: Oral 600 / 600 360 / 360 Output: Urine 700 / 700 975 / 975 Other: Date of Last Bowel Movement 01/23/18 01/24/18 # Bowel Movements 1 1 Weight On Admission 82.8 kg Narrative: GENERAL: Well-developed, well-nourished patient in NAD. SKIN: Warm and dry. No rash. HEAD: Normocephalic. Atraumatic. EYES: Pupils equal and round. No scleral icterus. No injection or drainage. ENT: No nasal bleeding or discharge. Mucous membranes pink and moist. NECK: Supple. Trachea midline. CARDIOVASCULAR: Irregularly irregular rhythm. RESPIRATORY: No accessory muscle use. Clear to auscultation. Breath sounds equal bilaterally. GASTROINTESTINAL: Abdomen soft, non-tender, nondistended. Normoactive bowel sounds x4. MUSCULOSKELETAL: No obvious deformities. Extremities without clubbing, cyanosis , or edema. NEUROLOGICAL: Awake and alert. No obvious cranial nerve deficits. Motor grossly within normal limits. 5/5 muscle strength in bilateral upper and lower extremities. Normal speech. PSYCHIATRIC: Appropriate mood and affect; insight and judgment normal. Results - Labs CBC & Chem 7: 01/24/18 04:30 01/24/18 04:30 Laboratory Results - last 24 hr 01/24/18 01/24/18 01/24/18 04:30 04:30 04:30 CBC w Diff Auto diff final WBC 9.3 RBC 5.22 Hgb 15.0 Hct 45.6 MCV 87.3 MCH 28.8 MCHC 32.9 RDW 14.3 Plt Count 222 MPV 8.7 Neut % (Auto) 69.7 Lymph % (Auto) 15.3 [place] % (Auto) 11.6 H Eos % (Auto) 3.1 Baso % (Auto) 0.3 Neut # (Auto) 6.5 Lymph # (Auto) 1.4 [place] # (Auto) 1.1 H Eos # (Auto) 0.3 Baso # (Auto) 0.0 WBC Differential . Differential Comment . PT 42.0 H INR 4.2 Sodium 137 Potassium 3.5 Chloride 105 Carbon Dioxide 23.6 Anion Gap 8 BUN 15 Creatinine 1.40 H Estimated GFR 49 L Random Glucose 89 Calcium 8.0 L Total Bilirubin 0.7 AST 15 ALT 18 Alkaline Phosphatase 59 Total Protein 6.7 D Albumin 3.0 L D Assessment and Plan - Assessment (1) Atrial fibrillation with RVR Code(s): I48.91 - Unspecified atrial fibrillation Status: Acute - Plan This is a 77-year-old male patient with: Atrial fibrillation with RVR. Improved. Supra-therapeutic INR -Patient presented to the ED with complaints of palpitations. EKG on presentation showing atrial fibrillation RVR with heart rate in the 130s. -Was given Cardizem bolus placed on Cardizem drip. Drip turned off early this am , switched to oral therapy. Added metoprolol for continued labile rate with activity. Much improved with both beta katty and Cardizem. -Continued on cardiac telemetry overnight. Stable and controlled today. -INR 4.2 despite holding Coumadin yesterday. Order for INR in am and be sent to PCP office for evaluation. -Patient has been educated to hold Coumadin dose today and obtain repeat INR level today. -Patient is stable at this time and agreeable to the plan. Hypertension, chronic: Patient has been recently taken off of losartan. On therapy with Lopressor and Cardizem, will defer antihypertensive to PCP and cardiology, BP is well controlled while hospitalized. Recent acute CVA -Follows with Dr. Mclean, stable at this time. Supportive care. On Coumadin. History of CHF, CAD in stable at this time. 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 DVT prophylaxis: SCDs. Coumadin. Discharge Planning: DC home today. Cardiac diet as tolerated. Activity as tolerated. Follow up PCP and traffic worker. Hold Coumadin dose today. Take metoprolol and Cardizem as ordered.
[2018-01-24] MEDS: Senna/Docusate Sodium 8.6/50 MG Tablet PO SCH (08:13)
[2018-01-24] MEDS: Pantoprazole Sodium 20 MG DR Tablet PO SCH (08:13)
[2018-01-24] MEDS ORDERED: dilTIAZem CD 120 MG Capsule PO SCH (09:00)
[2018-01-24] MEDS ORDERED: Metoprolol Tartrate 25 MG Tablet PO SCH (09:00)
[2018-01-24 09:51] VITALS: BP 140/95; O2SAT 94
[2018-01-24 09:57] VITALS: PULSE 102
--- NOTE | 2018-01-24 18:50 | ECG ---
Date Performed: 01/23/2018 Time Performed: 05:32:42 PTAGE: 77 years EKG: ATRIAL FIBRILLATION BORDERLINE LEFT AXIS DEVIATION MINIMAL VOLTAGE CRITERIA FOR LVH, CONSID ER NORMAL VARIANT ABNORMAL RHYTHM ECG INTERPRETATION BASED ON A DEFAULT AGE OF 40 YEARS PREVIOUS TRACING : 01/23/2018 05.04 DOCTOR: Víctor Owens Interpretating Date/Time 01/24/2018 18:40:16
== END 2018-01-24 11:45 | disposition home or self-care (01) ==
LOC: PHED 04:56 → PHEDA 06:26 → PHICU 09:36
PROVIDERS: ADMIT Internal Medicine; ATTEND Internal Medicine